=== PATIENT | female | born 1965 | race Caucasian/White ===

== ENCOUNTER 2020-07-08 15:01 | Emergency (ER) | payer MEDICAID, SELFPAY ==
[2020-07-08 16:28] VITALS: BP 136/83; PULSE 80; RESP 20; TEMP 36.4; O2SAT 96; BMI 30.2
[2020-07-08 19:40] VITALS: BP 164/90; PULSE 64; RESP 18; TEMP 36.7; O2SAT 99
--- NOTE | 2020-07-08 19:53 | ECG_ITS ---
Test Reason : CHEST PAIN Blood Pressure : / mmHG Vent. Rate : 065 BPM Atrial Rate : 065 BPM P-R Int : 194 ms QRS Dur : 088 ms QT Int : 378 ms P-R-T Axes : 040 -16 033 degrees QTc Int : 393 ms Normal sinus rhythm Septal infarct (cited on or before 26-AUG-2005) Abnormal ECG When compared with ECG of 31-MAY-2019 21:56, Premature ventricular complexes are no longer Present Questionable change in initial forces of Anterior leads Heart rate has decreased Referred By: Don Quiñones Electronically Signed By:NELL JOYCE MD
--- NOTE | 2020-07-08 19:54 | ED.ABDPAIN ---
HPI - Abdominal Pain General Chief Complaint: Abdominal Pain Stated Complaint: abdominal pain Time Seen by Provider: 07/08/20 19:36 Source: patient Mode of arrival: ambulatory Limitations: no limitations History of Present Illness HPI narrative: patient with no significant abdominal complaints in the past today she had few loose bowels and noticed left upper abdominal pain and then check her heart rate was 130 MD elicited complaint: abdominal pain Pertinent past history: none Onset (ago): day(s) (1) Pain Consistency: intermittent Location: LUQ Severity: mild Quality: cramping Radiation: LUQ Migration to: no migration Exacerbating factors: nothing Relieving factors: nothing Related Data Home Medications Medication Instructions Recorded Confirmed losartan 07/08/20 Allergies Allergy/AdvReac Type Severity Reaction Status Date / Time amoxicillin [AMOXICILLIN] Allergy Unknown HIVES Unverified 05/19/20 17:20 clarithromycin Allergy Unknown rash Verified 06/02/19 00:00 clindamycin [CLINDAMYCIN] Allergy Unknown RASH Unverified 05/19/20 17:20 metronidazole [From FLAGYL] Allergy Unknown RASH Unverified 05/19/20 17:20 Review of Systems Review of Systems REVIEW OF SYSTEMS: Pertinent positives and negatives are stated above in the history. GEN: no fevers, chills, fatigue HEENT: no nasal congestion, sore throat, ear pain NEURO: no headache, dizziness, focal weakness PULM: no cough, shortness of breath CV: no chest pain, palpitations, LE edema ABD: no, nausea, vomiting, no melena : no dysuria, urgency, frequency SKIN: no rash ROS otherwise negative x 10 Physical Exam Vital Signs: Vital Signs: Last Vital Signs Temp 98.1 F 07/08/20 20:06 Pulse 64 07/08/20 20:06 Resp 18 07/08/20 20:06 BP 127/76 07/08/20 20:06 Pulse Ox 99 07/08/20 20:06 Body Mass Index 30.2 Appearance: Alert. Oriented X3. No acute distress. Eyes: Pupils equal, round and reactive to light. ENT: Pharynx normal. Neck: Normal inspection. Neck supple. CVS: Normal heart rate and rhythm. Pulses normal. Respiratory: No respiratory distress. Breath sounds normal. Abdomen: Soft and nontender. no mass palpable no hernia no guarding Skin: Skin warm and dry. Normal skin color. Normal skin turgor. Extremities: No lower extremity edema. Good range of movement Neuro: Oriented X 3. No motor deficit. No sensory deficit. MDM - Abdominal Pain MDM Narrative Medical decision making narrative: patient with nonspecific abdominal pain with diarrhea at this time no abdominal tenderness noticed patient is feeling much better now likely from, diarrhea patient had colicky pain. Patient also said heart rate of 130 at this time patient has sinus rhythm will do the EKG ECG Data Attestation: I personally reviewed and interpreted this ECG as follows: Interpretation: normal sinus rhythm heart rate 65 normal intervals no acute ST T wave changes normal axis Discharge Plan Discharge Prescriptions: No Action losartan RF: 0 PMFSH Past Medical History Medical History Chronic renal failure Hypertension Hypoglycemia Social History Social History Advance Directives: No Advance Directives Information Provided: No
[2020-07-08 20:06] VITALS: BP 127/76; PULSE 64; RESP 18; TEMP 36.7; O2SAT 99
--- NOTE | 2020-07-08 20:21 | PC.NURSE ---
per dr cowan plan for ekg and d/c if normal. at this time ekg obtained, vitals wnl, pt denies any pain. plan to d.c home. ekg nsr.
== END 2020-07-08 20:40 | disposition home or self-care (01) ==
PROVIDERS: Emergency Provider Internal Medicine; PCP Physician Assistant
DX: R10.12 Left upper quadrant pain (principal); Z79.899 Other long term (current) drug therapy
CPT/HCPCS: 93005; 99283; 99284

== ENCOUNTER 2020-07-11 17:22 | Outpatient (REF) | payer MEDICAID, SELFPAY ==
[2020-07-11 17:53] LABS: MANUAL DIFF FLAG NO
[2020-07-11 17:58] LABS: Glucose Urine UA NEG (NEG); Leukocyte Esterase Urine NEG (NEG); Nitrite Urine NEG (NEG); PH 7.5 (5.0-8.0); Urine Blood NEG (NEG); Urine Ketones NEG (NEG); Urine Protein TRACE MG/DL (NEG-TRACE)
[2020-07-11 18:10] LABS: Basophils Absolute Auto 0.1 X10*3/uL (0.0-0.2); Basophils Percent Auto 0.8 % (0-2); Eosinophils Absolute Auto 0.2 X10*3/uL (0.0-0.4); Eosinophils Percent Auto 1.7 % (0-4); Hematocrit 40.4 % (37-47); Hemoglobin 13.8 g/dl (12.0-16.0); Imm Gran Abs Auto 0.02 X10*3/uL (0.00-0.03); Imm Gran Pct Auto 0.2 % (0.0-0.4); Lymphocytes Absolute Auto 1.2 X10*3/uL (1.2-4.9); Lymphocytes Percent Auto 13.7 % (20-40); Mean Corpuscular HGB Conc 34.2 g/dl (31.0-35.0); Mean Corpuscular Hemoglobin 32.2 pg (27.0-33.0); Mean Corpuscular Volume 94.2 fL (80-98); Mean Platelet Volume 10.3 fL (9.4-12.3); Monocytes Absolute Auto 0.5 X10*3/uL (0.1-1.2); Monocytes Percent Auto 5.5 % (2-11); Neutrophils Absolute Auto 6.7 X10*3/uL (2.0-8.3); Neutrophils Percent Auto 78.1 % (45-73); Platelet Count 276 X10*3/uL (160-400); Red Blood Count 4.29 X10*6/uL (4.20-5.50); Red Cell Distribution Width 12.1 % (11.0-16.0); White Blood Count 8.6 X10*3/uL (4.8-10.8)
[2020-07-11 18:11] LABS: Appearance Urine CLEAR; Color Urine YELLOW
[2020-07-11 18:18] LABS: Anion Gap 12 (12-20); Blood Urea Nitrogen 12 mg/dL (9-16); Calcium 9.4 mg/dL (8.4-10.2); Carbon Dioxide 28 mmol/L (22-29); Chloride 102 mmol/L (96-108); Creatinine Urine 77.23 mg/dL; Estimated Glomerular Filt Rate > 60; Microalbum/Creatinine Ratio Ur 284.8 ug/mg cr; Phosphorus 3.2 mg/dL (2.7-4.5); Potassium 4.9 mmol/l (3.3-5.1); Sodium 137 mmol/L (135-145)
[2020-07-11 18:35] LABS: RBC Urine 0 /HPF (0); Squamous Epithelial Cell Urine 3+ /LPF; WBC Urine 0 /HPF (0-4)
[2020-07-11 18:39] LABS: Vitamin D 25-OH Total 22.1 ng/mL (>30)
[2020-07-11 19:08] LABS: Renal w Reflex Lab Use Only Order verified
[2020-07-13 13:06] LABS: Calcium (PTHI) 9.6 mg/dL (8.6-10.4); PTHI 56 pg/mL (14-64)
== END 2020-07-11 17:23 | disposition home or self-care (01) ==
LOC: HO.LAB 17:22
PROVIDERS: Visit Provider Internal Medicine Nephrology
DX: N02.8 Recurrent and persistent hematuria with other morphologic changes (principal); R80.9 Proteinuria, unspecified
CPT/HCPCS: 36415; 80051; 81001; 82043; 82306; 82310; 82565; 83970; 84100; 84520; 85025

== ENCOUNTER 2020-08-23 16:10 | Outpatient (REF) | payer MEDICAID, SELFPAY | END 2020-08-23 16:11 | disposition home or self-care (01) | LOC: HO.LAB 16:10 | PROVIDERS: Visit Provider Internal Medicine | DX: Z20.828 Contact with and (suspected) exposure to other viral communicable diseases (principal) | CPT/HCPCS: C9803; U0003 ==

== ENCOUNTER 2020-09-28 14:30 | Emergency (ER) | payer MEDICAID, SELFPAY ==
--- NOTE | 2020-09-28 14:55 | ED_ITS ---
HPI - General Adult General Chief complaint: Weakness Stated complaint: HIGH BP Time Seen by Provider: 09/28/20 14:55 Source: patient Mode of arrival: ambulatory Limitations: no limitations History of Present Illness HPI narrative: Patient has noticed that her pressure is high feels weak and fatigued. Patient has been on losartan for a few years, pressure has been running high for a few days. Patient had a COVID test that is negative. Patient feels a little more swollen Onset (ago): day(s) Severity: mild Related Data Home Medications Medication Instructions Recorded Confirmed losartan 07/08/20 Allergies Allergy/AdvReac Type Severity Reaction Status Date / Time amoxicillin [AMOXICILLIN] Allergy Unknown HIVES Verified 09/28/20 15:16 clarithromycin Allergy Unknown rash Verified 06/02/19 00:00 clindamycin [CLINDAMYCIN] Allergy Unknown RASH Verified 09/28/20 15:16 metronidazole [From FLAGYL] Allergy Unknown RASH Verified 09/28/20 15:17 Review of Systems Constitutional: Constitutional: Reports no additional constitutional c omplaints Eyes: Eyes: Reports no additional eye complaints ENT: Denies dizziness Cardiovascular: Cardiovascular: Reports no additional cardiovascular complaints Respiratory: Respiratory: Reports as per HPI Gastrointestinal: Gastrointestinal: Reports no additional gastrointestinal complaints Genitourinary: Genitourinary: Reports no additional female genitourinary complaints Musculoskeletal: Musculoskeletal: Reports no additional musculoskeletal complaints Integumentary/Breasts: Skin/Breast: Denies rash Neurologic: Reports system reviewed and no additional complaints, except as documented, Denies dizziness and Denies Sensory deficit (Neuro) Psychiatric: Psychiatric: Denies anxiety [facility] Past Medical History Medical History Chronic renal failure Hypertension Hypoglycemia Social History Social History Advance Directives: No Advance Directives Information Provided: Yes Physical Exam Vital Signs: Vital Signs: Last Vital Signs Temp 98.6 F 09/28/20 15:01 Pulse 111 H 09/28/20 15:01 Resp 18 09/28/20 15:01 BP 179/85 H 09/28/20 15:01 Pulse Ox 100 09/28/20 15:01 Body Mass Index 30.1 Const: Other: Patient appearing stressed and anxious General: healthy appearing Nutritional Appearance: average body habitus Orientation/consciousness: oriented to person and patient oriented x3 Limitations: no limitations HENMT: Head: Yes normal to inspection Ears: external ears normal General nose exam: Normal external nose present Mouth: Normal oral and palatal mucosa present and oropharynx normal Throat: Yes posterior oropharynx normal Eyes: General: appearance normal, both eyes and all related structures Neck: Other: supple Neck: Yes normal visual inspection Chest: Chest palpation & inspection: normal inspection of the chest Resp: Auscultation: clear to auscultation bilaterally Cardio: Jugular venous distension: no JVD Rate: regular rate Rhythm: regular rhythm Heart sounds: S1 normal heart sound present and S2 normal heart sound present GI: Inspection: Yes normal to inspection Palpation (GI): Soft to palpation, nontender and No hepatosplenomegaly present Auscultation: normal bowel sounds : General: Yes no CVA tenderness Back/Spine/Pelvis: Back: no CVA tenderness Skin: General skin exam: no rashes or lesions noted Neuro: General: oriented to person and patient oriented x3 Cranial nerves: Yes CN's II-XII intact bilaterally Motor exam (neuro): 5/5 motor strength pre sent throughout Sensory Exam: No Sensory deficit (Neuro) Extrem: General: Yes normal to inspection Psych: Appearance: grossly normal Course Course Course Narrative: no evidence of CAD or CHF, renal function stable Medical Decision Making MDM Narrative Medical decision making narrative: considered HTN urgency, CHF, CAD, renal failure. Patient with essential HTN will dc home Lab Data Result diagrams: 09/28/20 15:26 09/28/20 15:26 Labs: Lab Results 09/28/20 09/28/20 09/28/20 Range/Units 15:26 15:26 15:26 WBC 9.9 (4.8-10.8) X10*3/uL RBC 4.31 (4.20-5.50) X10*6/uL Hgb 13.7 (12.0-16.0) g/dl Hct 40.1 (37-47) % MCV 93.0 (80-98) fL MCH 31.8 (27.0-33.0) pg MCHC 34.2 (31.0-35.0) g/dl RDW 12.0 (11.0-16.0) % Plt Count 251 (160-400) X10*3/uL MPV 9.7 (9.4-12.3) fL Immature Gran % (Auto) 0.3 (0.0-0.4) % Neut % (Auto) 78.5 H (45-73) % Lymph % (Auto) 13.6 L (20-40) % [place] % (Auto) 5.7 (2-11) % Eos % (Auto) 1.2 (0-4) % Baso % (Auto) 0.7 (0-2) % Lymph # (Auto) 1.4 (1.2-4.9) X10*3/uL [place] # (Auto) 0.6 (0.1-1.2) X10*3/uL Eos # (Auto) 0.1 (0.0-0.4) X10*3/uL Baso # (Auto) 0.1 (0.0-0.2) X10*3/uL Abs Immat Gran (auto) 0.03 (0.00-0.03) X10*3/uL Absolute Neuts (auto) 7.8 (2.0-8.3) X10*3/uL Absolute Nucleated RBC 0.000 (0.0-0.012) X10*3/uL Nucleated RBC % (auto) 0.0 (0.0-0.2) /100WBC Sodium 136 (135-145) mmol/L Potassium 3.8 D (3.3-5.1) mmol/l Chloride 103 (96-108) mmol/L Carbon Dioxide 24 (22-29) mmol/L Anion Gap 13 (12-20) BUN 12 (9-16) mg/dL Creatinine 0.74 (0.5-1.4) mg/dL Estim Creat Clear Calc 84.4 Estimated GFR > 60 Random Glucose 94 (60-115) mg/dL Calcium 8.7 D (8.4-10.2) mg/dL Troponin I High Sens (<3.5-17.0) ng/L B-Natriuretic Peptide < 10 (<100) pg/mL 09/28/20 Range/Units 15:26 WBC (4.8-10.8) X10*3/uL RBC (4.20-5.50) X10*6/uL Hgb (12.0-16.0) g/dl Hct (37-47) % MCV (80-98) fL MCH (27.0-33.0) pg MCHC (31.0-35.0) g/dl RDW (11.0-16.0) % Plt Count (160-400) X10*3/uL MPV (9.4-12.3) fL Immature Gran % (Auto) (0.0-0.4) % Neut % (Auto) (45-73) % Lymph % (Auto) (20-40) % [place] % (Auto) (2-11) % Eos % (Auto) (0-4) % Baso % (Auto) (0-2) % Lymph # (Auto) (1.2-4.9) X10*3/uL [place] # (Auto) (0.1-1.2) X10*3/uL Eos # (Auto) (0.0-0.4) X10*3/uL Baso # (Auto) (0.0-0.2) X10*3/uL Abs Immat Gran (auto) (0.00-0.03) X10*3/uL Absolute Neuts (auto) (2.0-8.3) X10*3/uL Absolute Nucleated RBC (0.0-0.012) X10*3/uL Nucleated RBC % (auto) (0.0-0.2) /100WBC Sodium (135-145) mmol/L Potassium (3.3-5.1) mmol/l Chloride (96-108) mmol/L Carbon Dioxide (22-29) mmol/L Anion Gap (12-20) BUN (9-16) mg/dL Creatinine (0.5-1.4) mg/dL Estim Creat Clear Calc Estimated GFR Random Glucose (60-115) mg/dL Calcium (8.4-10.2) mg/dL Troponin I High Sens < 3.5 (<3.5-17.0) ng/L B-Natriuretic Peptide (<100) pg/mL Imaging Data Chest x-ray: Radiologist's impression: no chf ECG Data Attestation: I personally reviewed and interpreted this ECG as follows: Interpretation: normal sinus rhythm rate 75, old septal qs, no acute changes Discharge Plan Discharge Clinical Impression: Essential hypertension Patient Disposition: Home, Self-Care Instructions: Chronic Hypertension (ED) Additional Instructions: may take losartan 25mg twice a day Prescriptions: No Action losartan RF: 0 Referrals: Ag Angel MD [Primary Care Provider] - 2 days
[2020-09-28 15:01] VITALS: BP 179/85; PULSE 111; RESP 18; TEMP 37; O2SAT 100; BMI 30.1
--- NOTE | 2020-09-28 15:01 | ECG_ITS ---
Test Reason : GENERAL MEDICAL Blood Pressure : / mmHG Vent. Rate : 075 BPM Atrial Rate : 075 BPM P-R Int : 190 ms QRS Dur : 080 ms QT Int : 370 ms P-R-T Axes : 063 -16 036 degrees QTc Int : 413 ms Normal sinus rhythm with sinus arrhythmia Septal infarct (cited on or before 26-AUG-2005) Abnormal ECG When compared with ECG of 08-JUL-2020 20:16, No significant change was found Referred By: Channing Sparks Electronically Signed By:John Garcia
--- NOTE | 2020-09-28 15:02 | XR_ITS ---
EXAMINATION: XR CHEST CLINICAL INFORMATION: Shortness of breath COMPARISON: Chest radiographs 02/21/2020, 04/14/2019 TECHNIQUE: Portable upright AP view of the chest was obtained. FINDINGS: The lungs are clear. There is no airspace consolidation or groundglass opacity. The costophrenic sulci are well-defined. Heart is normal. The hilar and mediastinal contours and bony structures are unremarkable. XR/XR chest 1V IMPRESSION: Unremarkable examination.
--- NOTE | 2020-09-28 15:29 | PC.NURSE ---
SEEN BY DR RICARDO. BP NORMAL AFTER TRIAGE - HTN MED HELP. LABS DRAWN.
[2020-09-28 15:31] LABS: MANUAL DIFF FLAG NO
[2020-09-28 15:34] LABS: Basophils Absolute Auto 0.1 X10*3/uL (0.0-0.2); Basophils Percent Auto 0.7 % (0-2); Eosinophils Absolute Auto 0.1 X10*3/uL (0.0-0.4); Eosinophils Percent Auto 1.2 % (0-4); Hematocrit 40.1 % (37-47); Hemoglobin 13.7 g/dl (12.0-16.0); Imm Gran Abs Auto 0.03 X10*3/uL (0.00-0.03); Imm Gran Pct Auto 0.3 % (0.0-0.4); Lymphocytes Absolute Auto 1.4 X10*3/uL (1.2-4.9); Lymphocytes Percent Auto 13.6 % (20-40); Mean Corpuscular HGB Conc 34.2 g/dl (31.0-35.0); Mean Corpuscular Hemoglobin 31.8 pg (27.0-33.0); Mean Platelet Volume 9.7 fL (9.4-12.3); Monocytes Absolute Auto 0.6 X10*3/uL (0.1-1.2); Monocytes Percent Auto 5.7 % (2-11); Neutrophils Absolute Auto 7.8 X10*3/uL (2.0-8.3); Neutrophils Percent Auto 78.5 % (45-73); Platelet Count 251 X10*3/uL (160-400); Red Blood Count 4.31 X10*6/uL (4.20-5.50); White Blood Count 9.9 X10*3/uL (4.8-10.8)
[2020-09-28 16:03] LABS: Anion Gap 13 (12-20); Blood Urea Nitrogen 12 mg/dL (9-16); Calcium 8.7 mg/dL (8.4-10.2); Carbon Dioxide 24 mmol/L (22-29); Creatinine Clr Calc Pharmacy 84.4; Estimated Glomerular Filt Rate > 60; Glucose Random 94 mg/dL (60-115); Potassium 3.8 mmol/l (3.3-5.1)
[2020-09-28 16:06] LABS: Chloride 103 mmol/L (96-108); Sodium 136 mmol/L (135-145)
[2020-09-28 16:11] LABS: B Type Natriuretic Peptide < 10 pg/mL (<100); Troponin-I High Sensitivity < 3.5 ng/L (<3.5-17.0)
[2020-09-28 16:38] VITALS: BP 127/73; PULSE 70
--- NOTE | 2020-09-28 16:46 | PC.NURSE ---
AFTER EVAL OF RESULTS, CLEARED FOR ED BY PROVIDER.
== END 2020-09-28 16:48 | disposition home or self-care (01) ==
PROVIDERS: Emergency Provider Emergency Medicine; PCP Family Medicine
DX: I10 Essential (primary) hypertension (principal); R53.1 Weakness; Z79.899 Other long term (current) drug therapy
CPT/HCPCS: 36415; 71045; 80048; 83880; 84484; 85025; 93005; 99283

== ENCOUNTER 2020-10-21 16:24 | Outpatient (REF) | payer MEDICAID, SELFPAY ==
[2020-10-21 17:39] LABS: Glucose Urine UA NEG (NEG); Leukocyte Esterase Urine NEG (NEG); Nitrite Urine NEG (NEG); Urine Blood TRACE (NEG); Urine Ketones NEG (NEG); Urine Protein NEG (NEG-TRACE)
[2020-10-21 17:40] LABS: Appearance Urine CLEAR; Color Urine YELLOW
[2020-10-21 17:47] LABS: Albumin Level 4.4 g/dL (3.5-5.0); Anion Gap 12 (12-20); Blood Urea Nitrogen 17 mg/dL (9-16); Calcium 9.1 mg/dL (8.4-10.2); Carbon Dioxide 24 mmol/L (22-29); Chloride 106 mmol/L (96-108); Estimated Glomerular Filt Rate > 60; Magnesium 2.3 mg/dL (1.6-2.6); Phosphorus 3.7 mg/dL (2.7-4.5); Potassium 4.3 mmol/L (3.3-5.1); Sodium 138 mmol/L (135-145)
[2020-10-21 17:52] LABS: Creatinine Urine 47.82 mg/dL; Protein/Creatinine Ratio, Ur 0.27 (<0.2); Total Protein Urine Random 13 mg/dL (<12)
[2020-10-21 18:03] LABS: Bacteria Urine 1+ /LPF; RBC Urine 0-2 /HPF (0); Squamous Epithelial Cell Urine 1+ /LPF; WBC Urine 0 /HPF (0-4)
[2020-10-21 18:57] LABS: Renal w Reflex Lab Use Only Order verified
== END 2020-10-21 16:25 | disposition home or self-care (01) ==
LOC: HO.LAB 16:24
PROVIDERS: PCP Family Medicine; Visit Provider Internal Medicine Nephrology
DX: N02.8 Recurrent and persistent hematuria with other morphologic changes (principal); R80.9 Proteinuria, unspecified; I10 Essential (primary) hypertension
CPT/HCPCS: 36415; 80051; 81001; 82040; 82043; 82310; 82565; 83735; 84100; 84156; 84520

== ENCOUNTER → 2020-11-15 13:24 | Outpatient (BNVA) | payer MEDICAID, SELFPAY | PROVIDERS: PCP Family Medicine; Visit Provider Nurse Practitioner Family | DX: R06.02 Shortness of breath (principal); I10 Essential (primary) hypertension; E66.9 Obesity, unspecified; Z68.30 Body mass index [BMI] 30.0-30.9, adult; Z79.899 Other long term (current) drug therapy; Z71.3 Dietary counseling and surveillance | CPT/HCPCS: 93005; 99212 ==

== ENCOUNTER → 2020-11-24 13:59 | Outpatient (BNVA) | payer MEDICAID, SELFPAY | PROVIDERS: PCP Family Medicine; Visit Provider Internal Medicine | DX: I10 Essential (primary) hypertension (principal) | CPT/HCPCS: 99212 ==

== ENCOUNTER → 2020-12-01 10:19 | Outpatient (REF) | payer MEDICAID, SELFPAY ==
--- NOTE | 2020-12-01 10:23 | CA_ITS ---
Transthoracic Echocardiogram Patient (Last, First, Middle): Belgica Rosario E Gender: Female Date of : 1965 Age: 55 Procedure Date: 12/01/2020 Procedure Type: Transthoracic Echocardiogram Location: OP Height: 160.02 cm Weight: 76.2 kg BSA: 1.80 m2 Heart Rate: bpm BP: 130 / 60 mmHg Ship Erector: EUFEMIA Referring MD: Gela Benton [employer] Intern: Oswadl Espino MD Symptoms: R06.02 - Shortness of breath Study Quality: Fair ECG Rhythm: Sinus Conclusions: - Normal study Findings Left Ventricle Normal left ventricular size, thickness, and systolic function. The visually estimated ejection fraction is between 60-65%. Diastolic function is normal for age. Right Ventricle Normal right ventricular cavity size and systolic function. Atria Both atria are normal in size. There is no evidence of interatrial shunt. Aortic Valve The aortic valve structure and function is likely normal. There is no aortic valve stenosis. There is no aortic valve regurgitation. Mitral Valve Normal mitral valve structure and function. There is trace mitral valve regurgitation. There is no mitral valve stenosis. Pulmonic Valve The pulmonic valve is likely normal. Tricuspid Valve Likely normal tricuspid valve structure and function. Tricuspid regurgitation envelope is inadequate for calculation of right ventricular systolic pressure. Great Vessels All visible segments of the aorta are normal in size. The pulmonary artery was not well visualized. Venous The inferior vena cava is normal in size and collapses greater than 50% with inspiration. Pericardium/Pleural There is no evidence of pericardial effusion. Prior Study Comparison No significant change compared to prior study dated: 01/02/2019. Measurements 2D Linear Measurements IVSd: 0.87 0.6-0.9/0.6-1.0 cm LVIDd: 4.35 3.9-5.3/4.2-5.9 cm LVIDd Index: 2.42 2.4-3.2/2.2-3.1 cm/m2 LVIDs: 2.96 2.0-3.6 cm LVPWd: 0.85 0.7-1.1 cm Ao Root: 2.30 2.1-3.5 cm LA Diam: 3.00 2.7-3.8/3.0-4.0 cm LAIDs Index: 1.67 1.5-2.3 cm/m2 LV Mass: 147.10 67-162/88-224 g LV Mass Index: 81.72 43-95/49-115 g/m2 LVOT Diam: 2.00 3.0+(-)1.3 cm 2D Systolic Function EF 4C: 66.10 >55% EF 2C: 61.60 >55% EF BiP: 64.40 >55% Mitral Valve MV Pk E: 0.89 MV PK A: 0.61 MV Decel Time: 277.00 E/A: 1.50 E'Lateral: 13.30 E'Medial: 11.30 E/E' Med: 7.90 E/E' Lat: 6.70 PHT: 81.00 MVA PHT: 2.72 Decel Pope: 3.23 Aortic Valve AoV Pk Rosalio: 1.51 AoV Pk Grad: 9.00 LVOT LVOT Pk Rosalio: 0.91 LVOT Mn Rosalio: 0.69 LVOT VTI: 0.19 LVOT Pk Grad: 3.00 LVOT Mn Grad: 2.00 LVOT Diam: 2.00 LVOT Area: 3.14 Diastolic Function MV Pk E: 0.89 MV Pk A: 0.61 E/A: 1.50 E'Medial: 11.30 E/E' Med: 7.90 E' Laterial: 13.30 E/E' Lat: 6.70 Tricuspid Valve RA Press: 3.00 Great Vessels Aorta Ao Root-2D: 2.30 2.0-3.7 cm Ao Asc: 2.90 2.1-3.4 cm Ao Arch: 2.80 Pulmonary Valve PV Pk Rosalio: 1.02 Peak PV Grad: 4.00 Updated in Other Vendor System with Status of Final Oswald Espino MD electronically signed on 12/01/2020 2:23:17 PM with status of Final
[2020-12-01 12:40] LABS: Anion Gap 12 (12-20); Blood Urea Nitrogen 13 mg/dL (9-16); Calcium 9.2 mg/dL (8.4-10.2); Carbon Dioxide 30 mmol/L (22-29); Chloride 102 mmol/L (96-108); Estimated Glomerular Filt Rate > 60; Potassium 4.1 mmol/L (3.3-5.1); Sodium 140 mmol/L (135-145); Uric Acid 6.5 mg/dL (2.4-5.7)
== END ==
LOC: HO.CARD 10:19
PROVIDERS: Absent Provider Internal Medicine Nephrology; PCP Family Medicine; Visit Provider Nurse Practitioner Family
DX: E66.9 Obesity, unspecified (principal); R06.02 Shortness of breath; N02.8 Recurrent and persistent hematuria with other morphologic changes; I10 Essential (primary) hypertension; R80.1 Persistent proteinuria, unspecified
CPT/HCPCS: 36415; 80051; 82310; 82565; 84520; 84550; 93306

== ENCOUNTER → 2020-12-29 11:04 | Outpatient (BNVA) | payer MEDICAID, SELFPAY | PROVIDERS: PCP Family Medicine; Visit Provider Nurse Practitioner Family ==

== ENCOUNTER 2020-12-30 13:22 | Outpatient (REF) | payer MEDICAID, SELFPAY ==
[2020-12-30 14:25] LABS: Glucose Urine UA NEG (NEG); Leukocyte Esterase Urine NEG (NEG); Nitrite Urine NEG (NEG); PH 6.5 (5.0-8.0); Specific Gravity - Urine <= 1.005 (1.005-1.025); Urine Blood NEG (NEG); Urine Ketones NEG (NEG); Urine Protein NEG (NEG-TRACE)
[2020-12-30 14:28] LABS: Appearance Urine CLEAR; Color Urine STRAW
[2020-12-30 14:39] LABS: RBC Urine 0 /HPF (0); WBC Urine 0 /HPF (0-4)
[2020-12-30 14:44] LABS: Albumin Level 4.9 g/dL (3.5-5.0); Anion Gap 14 (12-20); Blood Urea Nitrogen 12 mg/dL (9-16); Carbon Dioxide 29 mmol/L (22-29); Chloride 101 mmol/L (96-108); Estimated Glomerular Filt Rate > 60; Sodium 140 mmol/L (135-145); Uric Acid 5.9 mg/dL (2.4-5.7)
[2020-12-30 14:49] LABS: Creatinine Urine 18.46 mg/dL; Total Protein Urine Random < 7 mg/dL (<12)
== END 2020-12-30 13:23 | disposition home or self-care (01) ==
LOC: HO.LAB 13:22
PROVIDERS: PCP Family Medicine; Visit Provider Internal Medicine Nephrology
DX: R80.1 Persistent proteinuria, unspecified (principal); N03.3 Chronic nephritic syndrome with diffuse mesangial proliferative glomerulonephritis; N02.8 Recurrent and persistent hematuria with other morphologic changes; I10 Essential (primary) hypertension
CPT/HCPCS: 36415; 80051; 81001; 82040; 82310; 82565; 84156; 84520; 84550

== ENCOUNTER 2021-01-05 08:22 | Outpatient (REF) | payer MEDICAID, SELFPAY ==
--- NOTE | ~2021-01-05 | CT_ITS ---
EXAMINATION: CT ABDOMEN AND PELVIS WITH CONTRAST CLINICAL INFORMATION: Right-sided abdominal pain COMPARISON: Previous CT scans of the abdomen and pelvis most recent May 2019 TECHNIQUE: Multidetector volumetric images were obtained from the superior aspect of the liver through the pubic symphysis following administration 85 mL of Omnipaque 350 intravenous contrast. Sagittal and coronal reformatted images were obtained on the technologist's workstation. Oral contrast: Yes This CT examination was performed using dose optimization techniques as appropriate, variously including the following: *Automated exposure control *Adjustment of mA and/or kV according to patient size (this includes techniques or standardized protocols for targeted exams where dose is matched to indication/reason for exam; i.e. extremities or head) *Use of iterative reconstruction technique DLP: 400 mGy-cm FINDINGS: LUNG BASES: The visualized lung bases are unremarkable. LIVER, GALLBLADDER, AND BILIARY TREE: The liver is normal in size, shape, and attenuation. No focal hepatic lesion or biliary ductal dilatation is present. The gallbladder is unremarkable with no evidence of radiopaque gallstones, gallbladder wall thickening, or obvious pericholecystic inflammatory changes. PANCREAS: Unremarkable. SPLEEN: Unremarkable. ADRENAL GLANDS: There is a small 7 mm low-attenuation lesion in the left adrenal gland axial image 17 series 3. Hounsfield units following contrast measure 46 which is indeterminate. This does not appear appreciably changed from most recent exam May 2019. The right adrenal gland is normal. KIDNEYS AND URETERS: The kidneys are normal in size, shape, and attenuation. No hydronephrosis, hydroureter, or calculi seen. No perinephric stranding. BLADDER: Not well distended. GASTROINTESTINAL TRACT: There is diverticulosis of the colon. No evidence of diverticulitis is seen. The small and large bowel are otherwise unremarkable. The appendix is unremarkable. ABDOMINAL WALL: No significant hernia is appreciated. LYMPH NODES: Normal. VASCULAR: Unremarkable. PELVIC VISCERA: Unremarkable. OSSEOUS STRUCTURES: Unremarkable. CT/CT abdomen pelvis w con IMPRESSION: Diverticulosis of the colon. No evidence of diverticulitis. Stable 7 mm low-attenuation left adrenal nodule from May 2019 exam.
[2021-01-05] MEDS: iohexoL 350 MG/ML 100 ML INFUS..BTL IV (11:54)
== END 2021-01-05 08:23 | disposition home or self-care (01) ==
LOC: HO.CT 08:22
PROVIDERS: Visit Provider Internal Medicine Gastroenterology
DX: R10.9 Unspecified abdominal pain (principal)
CPT/HCPCS: 74177; Q9967

== ENCOUNTER → 2021-01-17 14:51 | Outpatient (BNVA) | payer MEDICAID, SELFPAY | PROVIDERS: PCP Family Medicine; Visit Provider Internal Medicine ==

== ENCOUNTER → 2021-03-02 15:16 | Outpatient (BNVA) | payer MEDICAID, SELFPAY | PROVIDERS: PCP Family Medicine; Visit Provider Internal Medicine ==

== ENCOUNTER 2021-03-20 10:51 | Outpatient (REF) | payer MEDICAID, SELFPAY ==
--- NOTE | ~2021-03-20 | MM_ITS ---
EXAMINATION: MM DIAGNOSTIC DIGITAL BREAST TOMOSYNTHESIS, BILATERAL US DIAGNOSTIC ULTRASOUND BREAST, RIGHT CLINICAL INFORMATION: Outside MRI chest notes 0.8 cm oval enhancing nodule central lower right breast. Also due for yearly exam. Family history breast cancer, maternal aunt. The lifetime risk of breast cancer based on the Tyrer-Cuzick Model is 14%. COMPARISON: Mammography: 10/28/2019, 08/12/2017; outside MRI chest 03/01/2021 ([facility] TECHNIQUE: Digital breast tomosynthesis is performed in both the craniocaudal and mediolateral oblique views along with computer-aided detection (CAD). Synthesized 2D images are generated from the tomosynthesis. Ultrasound right breast is targeted to the lower quadrants. Grayscale imaging and color Doppler are performed without and with harmonics. FINDINGS: The breasts are heterogeneously dense, which may obscure small masses (ACR BI-RADS breast composition Category c). The parenchymal pattern is similar to prior studies. There is no developing density or interval mass or architectural abnormality. There are are some scattered punctate calcifications central outer breasts similar to prior exams. The bilateral axilla and skin contours are unremarkable. The right breast has stable oval smooth nodule mid to posterior 6:00 position measuring 0.9 x 0.7 cm. This is similar in size and shape to prior studies 2019 and 2016. This corresponds to the finding on outside chest MRI. Outside exam shows oval nodule in similar location, high signal on T2 and showing uniform enhancement following gadolinium. Suspect probable fibroadenoma. Lack of change since 2017 is consistent with a benign entity. There is no ultrasound correlate to the chronic smooth benign nodule lower right breast. There is no cystic or solid mass demonstrated by ultrasound in the targeted area. No focal duct ectasia. No abnormal color flow. Results are discussed with the patient at time of visit. The finding lower right breast corresponds to the lesion on outside chest MRI and is stable for over 3 years consistent with benign entity, likely fibroadenoma. MM/MM tomosynthesis diagnostic BI IMPRESSION: 1. No mammographic evidence of malignancy. 2. Small smooth oval nodule 6:00 right breast stable since 08/12/2017 consistent with benign nodule, likely fibroadenoma. This corresponds to the finding on outside MR chest 03/01/2021. ASSESSMENT: BI-RADS 2: Benign RECOMMENDATION: Routine annual mammography screening. This patient's information was entered into a reminder system with a target due date for their next mammogram.
== END 2021-03-20 10:52 | disposition home or self-care (01) ==
LOC: HO.MAMMO 10:51
PROVIDERS: Visit Provider Family Medicine
DX: N63.15 Unspecified lump in the right breast, overlapping quadrants (principal)
CPT/HCPCS: 76642; 77062; 77066

== ENCOUNTER 2021-09-27 09:13 | Outpatient (REF) | payer MEDICAID, SELFPAY ==
[2021-09-27 10:12] LABS: Anion Gap 11 (12-20); Blood Urea Nitrogen 17 mg/dL (9-16); Calcium 9.8 mg/dL (8.4-10.2); Carbon Dioxide 28 mmol/L (22-29); Chloride 105 mmol/L (96-108); Cholesterol 226 mg/dL; Estimated Glomerular Filt Rate > 60; Glucose Random 94 mg/dL (60-115); HDL Cholesterol 54 mg/dL; LDL Cholesterol Calculated 152 mg/dl; Sodium 140 mmol/L (135-145); Triglycerides 103 mg/dL
== END 2021-09-27 09:14 | disposition home or self-care (01) ==
LOC: HO.LAB 09:13
PROVIDERS: Absent Provider Family Medicine; PCP Family Medicine; Visit Provider Nurse Practitioner Family
DX: E66.9 Obesity, unspecified (principal); I10 Essential (primary) hypertension; R06.02 Shortness of breath
CPT/HCPCS: 36415; 80048; 80061

== ENCOUNTER 2021-11-15 13:27 | Outpatient (REF) | payer MEDICAID, SELFPAY ==
--- NOTE | ~2021-11-15 | MM_ITS ---
EXAMINATION: MM DIAGNOSTIC DIGITAL BREAST TOMOSYNTHESIS, LEFT US DIAGNOSTIC ULTRASOUND BREAST, LEFT CLINICAL INFORMATION: Recent palpable fullness noted by patient left axilla. The lifetime risk of breast cancer based on the Tyrer-Cuzick Model is 15%. COMPARISON: Mammography: 03/20/2021, 10/28/2019, 08/12/2017 TECHNIQUE: Digital breast tomosynthesis is performed in both the craniocaudal and mediolateral oblique views along with computer-aided detection (CAD). Synthesized 2D images are generated from the tomosynthesis. Additional exaggerated left CC view is provided. Ultrasound upper outer left breast and axillary is performed using grayscale imaging and color Doppler without and with harmonics. FINDINGS: The breasts are heterogeneously dense, which may obscure small masses (ACR BI-RADS breast composition Category c). Parenchymal pattern is similar to prior studies and there is no developing density or interval mass or architectural abnormality. There are some scattered calcifications again seen central upper breast. There is no skin thickening or coarsening of the Daniel's ligaments. The axilla is unremarkable. Ultrasound demonstrates no cystic or solid mass or architectural abnormality. No lymphadenopathy. There are scattered nodes present in the axilla are of normal size and with normal henrry architecture and cortical thickness. Results are discussed with the patient at time of visit. MM/MM tomosynthesis diagnostic LT IMPRESSION: No mammographic evidence of malignancy. Unremarkable left breast/axillary ultrasound. No lymphadenopathy. ASSESSMENT: BI-RADS 1: Negative RECOMMENDATION: 1. Patient should be managed based on the clinical impression. If clinically indicated, further evaluation may be considered with surgical consult. Decision to proceed with biopsy should be based on clinical grounds and degree of clinical concern. 2. Otherwise, routine annual screening mammography. This patient's information was entered into a reminder system with a target due date for their next mammogram.
== END 2021-11-15 13:28 | disposition home or self-care (01) ==
LOC: HO.MAMMO 13:27
PROVIDERS: PCP Family Medicine; Visit Provider Family Medicine
DX: R22.2 Localized swelling, mass and lump, trunk (principal)
CPT/HCPCS: 76642; 77061; 77065

== ENCOUNTER 2022-04-25 12:46 | Outpatient (REF) | payer MEDICAID, SELFPAY ==
[2022-04-25 14:07] LABS: Anion Gap 17 (12-20); Blood Urea Nitrogen 14 mg/dL (9-16); Calcium 9.7 mg/dL (8.4-10.2); Carbon Dioxide 28 mmol/L (22-29); Chloride 99 mmol/L (96-108); Estimated Glomerular Filt Rate > 60; Potassium 3.9 mmol/L (3.3-5.1); Sodium 140 mmol/L (135-145)
[2022-04-25 14:18] LABS: Uric Acid 6.7 mg/dL (2.4-5.7)
== END 2022-04-25 12:47 | disposition home or self-care (01) ==
LOC: HO.LAB 12:46
PROVIDERS: PCP Family Medicine; Visit Provider Internal Medicine Nephrology
DX: I10 Essential (primary) hypertension (principal)
CPT/HCPCS: 36415; 80051; 82310; 82565; 84520; 84550

== ENCOUNTER 2022-11-21 15:28 | Outpatient (REF) | payer MEDICAID, SELFPAY ==
[2022-11-21 17:47] LABS: Appearance Urine Clear; Color Urine Yellow; Glucose Urine UA Negative (Negative); Leukocyte Esterase Urine Negative (Negative); Nitrite Urine Negative (Negative); Specific Gravity - Urine 1.015 (1.005-1.025); UMIC TRIGGER UA YES; Urine Blood Negative (Negative); Urine Ketones Negative (Negative); Urine Protein 30 (1+) mg/dL (Neg-Trace)
[2022-11-21 17:52] LABS: Bacteria Urine None Seen (None Seen); Hyaline Casts Urine 0-2 /LPF (0-2); RBC Urine 0-2 /HPF (0-2); Squamous Epithelial Cell Urine 0-2 /HPF (0-2); WBC Urine 0-5 /HPF (0-5)
[2022-11-21 17:58] LABS: Anion Gap 16 (12-20); Blood Urea Nitrogen 14 mg/dL (9-16); Calcium 9.1 mg/dL (8.4-10.2); Carbon Dioxide 24 mmol/L (22-29); Chloride 104 mmol/L (96-108); Estimated Glomerular Filt Rate 53; Potassium 4.3 mmol/L (3.3-5.1); Sodium 140 mmol/L (135-145)
[2022-11-21 18:34] LABS: Protein/Creatinine Ratio, Ur 0.27 (<0.2); Total Protein Urine Random 21 mg/dL (<12)
== END 2022-11-21 15:29 | disposition home or self-care (01) ==
LOC: HO.LAB 15:28
PROVIDERS: PCP Family Medicine; Visit Provider Internal Medicine Nephrology
DX: N07 Hereditary nephropathy, not elsewhere classified (principal)
CPT/HCPCS: 36415; 80051; 81001; 82310; 82565; 84156; 84520

== ENCOUNTER 2022-11-27 15:07 | Emergency (ER) | payer MEDICAID, SELFPAY ==
--- NOTE | ~2022-11-27 | XR_ITS ---
EXAMINATION: XR CHEST CLINICAL INFORMATION: Generalized weakness COMPARISON: 09/28/2020 chest radiograph. . TECHNIQUE: 2 views of the chest were obtained. FINDINGS: No significant abnormality is noted involving the heart, lungs, mediastinum, bony thorax or soft tissues. XR/XR chest 2V IMPRESSION: No acute cardiopulmonary process.
[2022-11-27 15:27] VITALS: BP 114/72; PULSE 86; RESP 18; TEMP 36.9; O2SAT 98; BMI 31.8
--- NOTE | 2022-11-27 15:28 | ED_ITS ---
HPI - General Adult General Chief complaint: General Medical <SHAHLA Mcdonald - Last Filed: 11/27/22 15:32> Stated complaint: high blood pressure <SHAHLA Mcdonald - Last Filed: 11/27/22 15:32> Time Seen by Provider: 11/27/22 15:56 <SHAHLA Mcdonald - Last Filed: 11/27/22 15:32> Source: patient <SHAHLA Alvarez Last Filed: 11/27/22 17:58> Mode of arrival: ambulatory <SHAHLA Alvarez - Last Filed: 11/27/22 17:58> Limitations: no limitations <SHAHLA Alvarez Last Filed: 11/27/22 17:58> History of Present Illness HPI narrative: This is a 57-year-old female history of IgA nephropathy hypertension, obesity presenting to the emergency department for evaluation of high blood pressure at home, patient tells me she is worried because this morning when she checked her pressure when she woke up her blood pressure was systolic in the 150s diastolic 112. Patient tells me she does not know why she checked her blood pressure however she noted it was high and because of her nephropathy she wanted to come in and be evaluated. I asked patient if she had any new medication changes and she tells me yes, she tells me she takes losartan, hydroc hlorothiazide and amlodipine. She reports that recently they increased her dose from amlodipine 5-10 however she has not been taking it as a full dose of 10 she takes 5 in the morning 5 at night. Patient also tells me she recently stopped taking trazodone for insomnia and she is not sure if this is why she feels weird . She is unable to describe what weird means. Patient denies chest pain, shortness of breath, nausea, vomiting, abdominal pain, headache, vision changes, dizziness, weakness, fevers, chills. Patient is followed by Nephrology Dr. Castellano. 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 <SHAHLA Alvarez Last Filed: 11/27/22 17:58> Related Data Home medications: Home Medications Medication Instructions Recorded Confirmed hydrochlorothiazide 25 mg tablet 12.5 mg PO DAILY 11/24/20 01/17/21 losartan 25 mg tablet See Rx Instructions PO DAILY 11/24/20 01/17/21 escitalopram oxalate 5 mg tablet 5 mg PO DAILY 12/29/20 01/17/21 lorazepam 0.5 mg tablet (Ativan) 0.5 mg PO DAILY PRN 12/29/20 01/17/21 Previous Rx's Medication Instructions Recorded doxazosin 1 mg tablet (Cardura) 1 mg PO DAILY #90 tabs 02/09/21 <SHAHLA Mcdonald - Last Filed: 11/27/22 15:32> Allergies/adverse reactions: Allergies Allergy/AdvReac Type Severity Reaction Status Date / Time amoxicillin [AMOXICILLIN] Allergy Unknown HIVES Verified 01/17/21 14:55 clarithromycin Allergy Unknown rash Verified 01/17/21 14:55 clindamycin [CLINDAMYCIN] Allergy Unknown RASH Verified 01/17/21 14:55 metronidazole [From FLAGYL] Allergy Unknown RASH Verified 01/17/21 14:55 <SHAHLA Mcdonald - Last Filed: 11/27/22 15:32> Review of Systems Review of Systems: Constitutional : No Weight loss, No Fever, No Chills, No Fatigue, No Malaise ENT/Mouth : No sore throat, No Rhinorrhea Eyes: No Eye Pain, No Swelling, No Redness Cardiovascular : No Chest Pain, No SOB, No Dyspnea on Exertion, No Orthopnea, No Edema, No Palpitations Respiratory : No Cough, No Sputum, No Wheezing Gastrointestinal : No Nausea, No Vomiting, No Diarrhea, No Constipation, No abdominal Pain, No Hematochezia, No Melena Genitourinary : No Dysuria, No Urinary Frequency, No Hematuria, Musculoskeletal : No joint pain, No Myalgias, No Joint Swelling Skin : No Skin Lesions, No rash Neuro : No Weakness, No Numbness, No Dizziness, No Headache Psych : No Anxiety/Panic, No Depression All other systems reviewed and are negative <SHAHLA Alvarez Last Filed: 11/27/22 17:58> Yes all other systems are reviewed and are negative <SHAHLA Alvarez Last Filed: 11/27/22 17:58> [facility] Past Medical History Attestation statement: The following information was validated with the patient. <SHAHLA Alvarez - Last Filed: 11/27/22 17:58> Source: old records reviewed and nursing notes reviewed <SHAHLA Alvarez - Last Filed: 11/27/22 17:58> Medical History: Medical History Chronic renal failure Essential hypertension Hypertension Hypoglycemia <SHAHLA Mcdonald - Last Filed: 11/27/22 15:32> Surgical History: Surgical History No pertinent past surgical history <SHAHLA Mcdonald - Last Filed: 11/27/22 15:32> Family History Family History: Family History Mother HTN (hypertension) <SHAHLA Mcdonald - Last Filed: 11/27/22 15:32> Social History Social History: Social History Advance Directives: No Advance Directives Information Provided: No <SHAHLA Mcdonald - Last Filed: 11/27/22 15:32> Physical Exam ED Vital Signs: Vital Signs - 24 hr 11/27/22 15:27 Temperature 98.4 F Pulse Rate 86 Respiratory Rate 18 Blood Pressure 114/72 Pulse Oximetry 98 Oxygen Delivery Method Room Air BMI result Body Mass Index 31.8 <SHAHLA Mcdonald - Last Filed: 11/27/22 15:32> Vital Signs - 24 hr 11/27/22 15:27 Temperature 98.4 F Pulse Rate 86 Respiratory Rate 18 Blood Pressure 114/72 Pulse Oximetry 98 Oxygen Delivery Method Room Air BMI result Body Mass Index 31.8 Vital signs stable <SHAHLA Alvarez - Last Filed: 11/27/22 17:58> Appearance: Alert.? Oriented X3.? No acute distress.? Head: Normocephalic, atraumatic, no step-offs or deformities Eyes: Pupils equal, round and reactive to light.? CVS: Normal heart rate and rhythm.? Pulses normal.? Respiratory: No respiratory distress.? Breath sounds normal.? Abdomen: Soft and nontender.? Skin: Skin warm and dry.? Normal skin color.? Normal skin turgor.? Extremities: No lower extremity edema.? No calf ttp. 5/5 strength to bilateral upper and lower extremities Back: No midline tenderness, no C-spine tenderness, full range of motion, no CV A tenderness bilaterally Neuro: Oriented X 3.? No motor deficit.? No sensory deficit. CN 2-12 intact. Normal [id number], mypi-in-ddve steady tandem gait with normal coordination. NIH stroke scale 0 <SHAHLA Alvarez - Last Filed: 11/27/22 17:58> Course Course Course Narrative: RME- 15:30pm - 57yoF with a PMHx of IG nephropathy presenting to the ER with complaints of high blood pressure readings all day at 166/110. Reports she was feeling a l ittle bit off like weak it was weird per pt. Reports now she feels better. Patient has normal vital signs here in the triage room. Will obtain EKG, chest x-ray and basic labs patient to be sent back to the waiting room. <SHAHLA Mcdonald - Last Filed: 11/27/22 15:32> Reevaluation(s) Reevaluation #1: CBC with no acute findings. UA without infection however does appear to have protein in the urine, which has been present previously will have her follow up with Nephrology nothing to be done acutely about this... Coags unremarkable. X-ray with no acute pulmonary process. Pending serology, chemistry, troponin. <SHAHLA Alvarez - Last Filed: 11/27/22 17:58> Time: 17:13 <SHAHLA Alvarez - Last Filed: 11/27/22 17:58> Reevaluation #2: Troponin negative, EKG nonischemic. Patient negative for flu, COVID, RSV. Chemistry with no acute findings requiring intervention. Have her follow-up with Nephrology. Educated patient on diagnosis and treatment plan, answered all question, patient verbalizes understanding. At this time patient will be discharged home, advised to return with new or worsening symptoms. Educated on worrisome signs and symptoms and when to return. At this time I feel comfortabl e discharge home. <SHAHLA Alvarez - Last Filed: 11/27/22 17:58> Time: 17:58 <SHAHLA Alvarez - Last Filed: 11/27/22 17:58> Medical Decision Making Medical Decision Making [facility] Narrative: 1605 57-year-old female presents for evaluation of high blood pressures at home, asymptomatic, tells me she just wanted to be seen since she has a history of IgA nephropathy. Physical exam benign. NIH stroke scale 0. Patient's blood pressure likely elevated at home due to patient not taking her medications as prescribed. There is no signs of intracranial hemorrhage, stroke, posterior stroke. No painful eye movements or vision, unlikely wet macular degeneration acute closed angle glaucoma. No signs of hypertensive emergency or urgency. Plan at this time labs, troponin, urine. <SHAHLA Alvarez - Last Filed: 11/27/22 17:58> Differential Diagnosis Differential Diagnoses: The differential diagnosis associated with the presentation includes <SHAHLA Alvarez - Last Filed: 11/27/22 17:58> Patient's blood pressure likely elevated at home due to patient not taking her medications as prescribed. There is no signs of intracranial hemorrhage, stroke, posterior stroke. No painful eye movements or vision, unlikely wet macular degeneration acute closed angle glaucoma. No signs of hypertensive emergency or urgency. <SHAHLA Alvarez - Last Filed: 11/27/22 17:58> Admission/Observation Consideration of admission/observation: Escalation of care including admission/observation considered <SHAHLA Alvarez - Last Filed: 11/27/22 17:58> Unlikely <SHAHLA Alvarez - Last Filed: 11/27/22 17:58> Lab Data Result Diagrams: 11/27/22 16:40 11/27/22 16:40 <SHAHLA Mcdonald - Last Filed: 11/27/22 15:32> Labs: Lab Results 11/27/22 11/27/22 11/27/22 Range/Units 16:40 16:40 16:40 WBC 8.1 (4.8-10.8) X10*3/uL RBC 4.61 (4.20-5.50) X10*6/uL Hgb 14.0 (12.0-16.0) g/dl Hct 40.2 (37.0-47.0) % MCV 87.2 (80.0-98.0) fL MCH 30.4 (27.0-33.0) pg MCHC 34.8 (31.0-35.0) g/dl RDW 12.4 (11.0-16.0) % Plt Count 281 (160-400) X10*3/uL MPV 9.8 (9.4-12.3) fL Immature Gran % (Auto) 0.2 (0.0-0.4) % Neut % (Auto) 74.8 H (45-73) % Lymph % (Auto) 14.7 L (20-40) % Desha % (Auto) 6.3 (2-11) % Eos % (Auto) 3.0 (0-4) % Baso % (Auto) 1.0 (0-2) % Lymph # (Auto) 1.2 (1.2-4.9) X10*3/uL Desha # (Auto) 0.5 (0.1-1.2) X10*3/uL Eos # (Auto) 0.2 (0.0-0.4) X10*3/uL Baso # (Auto) 0.1 (0.0-0.2) X10*3/uL Abs Immat Gran (auto) 0.02 (0.00-0.03) X10*3/uL Absolute Neuts (auto) 6.1 (2.0-8.3) x10*3/uL Absolute Nucleated RBC 0.000 (0.0-0.012) X10*3/uL Nucleated RBC % (auto) 0.0 (0.0-0.2) /100WBC PT 11.0 (10.0-13.1) SEC INR 1.0 (0.9-1.1) Sodium 139 (135-145) mmol/L Potassium 3.8 (3.3-5.1) mmol/L Chloride 102 (96-108) mmol/L Carbon Dioxide 27 (22-29) mmol/L Anion Gap 14 (12-20) BUN 14 (9-16) mg/dL Creatinine 0.82 (0.5-1.4) mg/dL Estim Creat Clear Calc 76.6 Estimated GFR > 60 Random Glucose 107 (60-115) mg/dL Calcium 9.8 D (8.4-10.2) mg/dL Magnesium 2.4 (1.6-2.6) mg/dL Total Bilirubin 0.5 (0.0-1.0) mg/dL AST 26 (5-31) U/L ALT 37 H (0-31) U/L Alkaline Phosphatase 81 (39-117) U/L Troponin I High Sens (<3.5-17.0) ng/L Total Protein 7.5 (6.5-8.0) g/dL Albumin 4.7 (3.5-5.0) g/dL Urine Color Urine Appearance Urine pH (5.0-9.0) Ur Specific [place] (1.005-1.025) Urine Protein (Neg-Trace) mg/dL Urine Glucose (UA) (Negative) mg/dL Urine Ketones (Negative) mg/dL Urine Blood (Negative) Urine Nitrite (Negative) Ur Leukocyte Esterase (Negative) Influenza Type A (PCR) (Negative) Influenza Type B (PCR) (Negative) RSV RNA Qual (PCR) (Negative) SARS-CoV-2 RNA (RT-PCR) (Negative) 11/27/22 11/27/22 11/27/22 Range/Units 16:40 16:40 16:41 WBC (4.8-10.8) X10*3/uL RBC (4.20-5.50) X10*6/uL Hgb (12.0-16.0) g/dl Hct (37.0-47.0) % MCV (80.0-98.0) fL MCH (27.0-33.0) pg MCHC (31.0-35.0) g/dl RDW (11.0-16.0) % Plt Count (160-400) X10*3/uL MPV (9.4-12.3) fL Immature Gran % (Auto) (0.0-0.4) % Neut % (Auto) (45-73) % Lymph % (Auto) (20-40) % Desha % (Auto) (2-11) % Eos % (Auto) (0-4) % Baso % (Auto) (0-2) % Lymph # (Auto) (1.2-4.9) X10*3/uL Desha # (Auto) (0.1-1.2) X10*3/uL Eos # (Auto) (0.0-0.4) X10*3/uL Baso # (Auto) (0.0-0.2) X10*3/uL Abs Immat Gran (auto) (0.00-0.03) X10*3/uL Absolute Neuts (auto) (2.0-8.3) x10*3/uL Absolute Nucleated RBC (0.0-0.012) X10*3/uL Nucleated RBC % (auto) (0.0-0.2) /100WBC PT (10.0-13.1) SEC INR (0.9-1.1) Sodium (135-145) mmol/L Potassium (3.3-5.1) mmol/L Chloride (96-108) mmol/L Carbon Dioxide (22-29) mmol/L Anion Gap (12-20) BUN (9-16) mg/dL Creatinine (0.5-1.4) mg/dL Estim Creat Clear Calc Estimated GFR Random Glucose (60-115) mg/dL Calcium (8.4-10.2) mg/dL Magnesium (1.6-2.6) mg/dL Total Bilirubin (0.0-1.0) mg/dL AST (5-31) U/L ALT (0-31) U/L Alkaline Phosphatase (39-117) U/L Troponin I High Sens < 3.5 (<3.5-17.0) ng/L Total Protein (6.5-8.0) g/dL Albumin (3.5-5.0) g/dL Urine Color Yellow Urine Appearance Clear Urine pH 7.0 (5.0-9.0) Ur Specific [place] 1.010 (1.005-1.025) Urine Protein 30 (1+) H (Neg-Trace) mg/dL Urine Glucose (UA) Negative (Negative) mg/dL Urine Ketones Negative (Negative) mg/dL Urine Blood Negative (Negative) Urine Nitrite Negative (Negative) Ur Leukocyte Esterase Negative (Negative) Influenza Type A (PCR) NEGATIVE (Negative) Influenza Type B (PCR) NEGATIVE (Negative) RSV RNA Qual (PCR) NEGATIVE (Negative) SARS-CoV-2 RNA (RT-PCR) NEGATIVE (Negative) <SHAHLA Mcdonald - Last Filed: 11/27/22 15:32> Lab Results 11/27/22 11/27/22 11/27/22 Range/Units 16:40 16:40 16:40 WBC 8.1 (4.8-10.8) X10*3/uL RBC 4.61 (4.20-5.50) X10*6/uL Hgb 14.0 (12.0-16.0) g/dl Hct 40.2 (37.0-47.0) % MCV 87.2 (80.0-98.0) fL MCH 30.4 (27.0-33.0) pg MCHC 34.8 (31.0-35.0) g/dl RDW 12.4 (11.0-16.0) % Plt Count 281 (160-400) X10*3/uL MPV 9.8 (9.4-12.3) fL Immature Gran % (Auto) 0.2 (0.0-0.4) % Neut % (Auto) 74.8 H (45-73) % Lymph % (Auto) 14.7 L (20-40) % Desha % (Auto) 6.3 (2-11) % Eos % (Auto) 3.0 (0-4) % Baso % (Auto) 1.0 (0-2) % Lymph # (Auto) 1.2 (1.2-4.9) X10*3/uL Desha # (Auto) 0.5 (0.1-1.2) X10*3/uL Eos # (Auto) 0.2 (0.0-0.4) X10*3/uL Baso # (Auto) 0.1 (0.0-0.2) X10*3/uL Abs Immat Gran (auto) 0.02 (0.00-0.03) X10*3/uL Absolute Neuts (auto) 6.1 (2.0-8.3) x10*3/uL Absolute Nucleated RBC 0.000 (0.0-0.012) X10*3/uL Nucleated RBC % (auto) 0.0 (0.0-0.2) /100WBC PT 11.0 (10.0-13.1) SEC INR 1.0 (0.9-1.1) Sodium 139 (135-145) mmol/L Potassium 3.8 (3.3-5.1) mmol/L Chloride 102 (96-108) mmol/L Carbon Dioxide 27 (22-29) mmol/L Anion Gap 14 (12-20) BUN 14 (9-16) mg/dL Creatinine 0.82 (0.5-1.4) mg/dL Estim Creat Clear Calc 76.6 Estimated GFR > 60 Random Glucose 107 (60-115) mg/dL Calcium 9.8 D (8.4-10.2) mg/dL Magnesium 2.4 (1.6-2.6) mg/dL Total Bilirubin 0.5 (0.0-1.0) mg/dL AST 26 (5-31) U/L ALT 37 H (0-31) U/L Alkaline Phosphatase 81 (39-117) U/L Troponin I High Sens (<3.5-17.0) ng/L Total Protein 7.5 (6.5-8.0) g/dL Albumin 4.7 (3.5-5.0) g/dL Urine Color Urine Appearance Urine pH (5.0-9.0) Ur Specific [place] (1.005-1.025) Urine Protein (Neg-Trace) mg/dL Urine Glucose (UA) (Negative) mg/dL Urine Ketones (Negative) mg/dL Urine Blood (Negative) Urine Nitrite (Negative) Ur Leukocyte Esterase (Negative) Influenza Type A (PCR) (Negative) Influenza Type B (PCR) (Negative) RSV RNA Qual (PCR) (Negative) SARS-CoV-2 RNA (RT-PCR) (Negative) 11/27/22 11/27/22 11/27/22 Range/Units 16:40 16:40 16:41 WBC (4.8-10.8) X10*3/uL RBC (4.20-5.50) X10*6/uL Hgb (12.0-16.0) g/dl Hct (37.0-47.0) % MCV (80.0-98.0) fL MCH (27.0-33.0) pg MCHC (31.0-35.0) g/dl RDW (11.0-16.0) % Plt Count (160-400) X10*3/uL MPV (9.4-12.3) fL Immature Gran % (Auto) (0.0-0.4) % Neut % (Auto) (45-73) % Lymph % (Auto) (20-40) % Desha % (Auto) (2-11) % Eos % (Auto) (0-4) % Baso % (Auto) (0-2) % Lymph # (Auto) (1.2-4.9) X10*3/uL Desha # (Auto) (0.1-1.2) X10*3/uL Eos # (Auto) (0.0-0.4) X10*3/uL Baso # (Auto) (0.0-0.2) X10*3/uL Abs Immat Gran (auto) (0.00-0.03) X10*3/uL Absolute Neuts (auto) (2.0-8.3) x10*3/uL Absolute Nucleated RBC (0.0-0.012) X10*3/uL Nucleated RBC % (auto) (0.0-0.2) /100WBC PT (10.0-13.1) SEC INR (0.9-1.1) Sodium (135-145) mmol/L Potassium (3.3-5.1) mmol/L Chloride (96-108) mmol/L Carbon Dioxide (22-29) mmol/L Anion Gap (12-20) BUN (9-16) mg/dL Creatinine (0.5-1.4) mg/dL Estim Creat Clear Calc Estimated GFR Random Glucose (60-115) mg/dL Calcium (8.4-10.2) mg/dL Magnesium (1.6-2.6) mg/dL Total Bilirubin (0.0-1.0) mg/dL AST (5-31) U/L ALT (0-31) U/L Alkaline Phosphatase (39-117) U/L Troponin I High Sens < 3.5 (<3.5-17.0) ng/L Total Protein (6.5-8.0) g/dL Albumin (3.5-5.0) g/dL Urine Color Yellow Urine Appearance Clear Urine pH 7.0 (5.0-9.0) Ur Specific [place] 1.010 (1.005-1.025) Urine Protein 30 (1+) H (Neg-Trace) mg/dL Urine Glucose (UA) Negative (Negative) mg/dL Urine Ketones Negative (Negative) mg/dL Urine Blood Negative (Negative) Urine Nitrite Negative (Negative) Ur Leukocyte Esterase Negative (Negative) Influenza Type A (PCR) NEGATIVE (Negative) Influenza Type B (PCR) NEGATIVE (Negative) RSV RNA Qual (PCR) NEGATIVE (Negative) SARS-CoV-2 RNA (RT-PCR) NEGATIVE (Negative) <SHAHLA Alvarez - Last Filed: 11/27/22 17:58> Independent Interpretation I performed an independent interpretation of an: EKG (Ventricular rate of 64, ME prolonged, QRS normal, QT/QTC normal. EKG with sinus rhythm with first-degree AV block. No signs of acute ischemia.) and Plain X-Ray <SHAHLA Alvarez - Last Filed: 11/27/22 17:58> Radiology Impression Discussion of test interpretation with radiology: I have reviewed the radiologist's reading. <SHAHLA Alvarez - Last Filed: 11/27/22 17:58> Chronic Conditions Patient?s care impacted by: Hypertension <SHAHLA Alvarez - Last Filed: 11/27/22 17:58> Core Measures AMI core measures followed: Yes <SHAHLA Alvarez - Last Filed: 11/27/22 17:58> Measure exclusions: not indicated <SHAHLA Alvarez - Last Filed: 11/27/22 17:58> Critical Care Time Critical Care Time Critical Care Time: No <SHAHLA Alvarez - Last Filed: 11/27/22 17:58> Discharge Plan Discharge Clinical Impression: Normal physical exam, Atrioventricular block, first degree <SHAHLA Mcdonald - Last Filed: 11/27/22 15:32> Patient Disposition: Home, Self-Care <SHAHLA Mcdonald - Last Filed: 11/27/22 15:32> Instructions: Normal Exam (ED) <SHAHLA Mcdonald Last Filed: 11/27/22 15:32> Additional Instructions: Take your medications as prescribed. If you were prescribed antibiotics today, it is important that you take your medication to their entirety, do not skip any doses, do not finish them early. Follow-up with your primary care provider this week. Follow-up with Nephrology as soon as possible Return to the emergency department with new or worsening symptoms. Such as fevers, chills, chest pain, shortness of breath, nausea, vomiting, dizziness, headache, vision changes, lethargy In case of emergency call 911 Check your blood pressure Saturday, Saturday, Saturday, write it down and share with your primary care provider Your EKG did show first-degree AV block. Please mention this to her primary care provider. <SHAHLA Mcdonald - Last Filed: 11/27/22 15:32> Prescriptions: No Action doxazosin [Cardura] 1 mg tablet 1 mg PO DAILY Qty: 90 1RF losartan 25 mg tablet See Rx Instructions PO DAILY Rx Instructions: 1.5-2 tablets PO daily; hydrochlorothiazide 25 mg tablet 12.5 mg PO DAILY escitalopram oxalate 5 mg tablet 5 mg PO DAILY lorazepam [Ativan] 0.5 mg tablet 0.5 mg PO DAILY PRN <SHAHLA Mcdonald - Last Filed: 11/27/22 15:32> Referrals: Ag Angel MD [Primary Care Provider] - 2 days Margaret Castellano MD [Physician] - 1 day <SHAHLA Mcdonald - Last Filed: 11/27/22 15:32>
--- NOTE | 2022-11-27 15:31 | ECG_ITS ---
Test Reason : HIGH BLOOD PRESSURE Blood Pressure : / mmHG Vent. Rate : 064 BPM Atrial Rate : 064 BPM P-R Int : 224 ms QRS Dur : 088 ms QT Int : 386 ms P-R-T Axes : 035 -15 022 degrees QTc Int : 398 ms Sinus rhythm with 1st degree A-V block with Premature atrial complexes Anteroseptal infarct (cited on or before 26-AUG-2005) Abnormal ECG When compared with ECG of 28-SEP-2020 15:49, Premature atrial complexes are now Present NC interval has increased Referred By: Maritza Miller Electronically Signed By:MICH NUNO
[2022-11-27 16:49] LABS: MANUAL DIFF FLAG NO
[2022-11-27 16:54] LABS: Basophils Absolute Auto 0.1 X10*3/uL (0.0-0.2); Eosinophils Absolute Auto 0.2 X10*3/uL (0.0-0.4); Hematocrit 40.2 % (37.0-47.0); Imm Gran Abs Auto 0.02 X10*3/uL (0.00-0.03); Imm Gran Pct Auto 0.2 % (0.0-0.4); Lymphocytes Absolute Auto 1.2 X10*3/uL (1.2-4.9); Lymphocytes Percent Auto 14.7 % (20-40); Mean Corpuscular HGB Conc 34.8 g/dl (31.0-35.0); Mean Corpuscular Hemoglobin 30.4 pg (27.0-33.0); Mean Corpuscular Volume 87.2 fL (80.0-98.0); Mean Platelet Volume 9.8 fL (9.4-12.3); Monocytes Absolute Auto 0.5 X10*3/uL (0.1-1.2); Monocytes Percent Auto 6.3 % (2-11); Neutrophils Absolute Auto 6.1 x10*3/uL (2.0-8.3); Neutrophils Percent Auto 74.8 % (45-73); Platelet Count 281 X10*3/uL (160-400); Red Blood Count 4.61 X10*6/uL (4.20-5.50); Red Cell Distribution Width 12.4 % (11.0-16.0); White Blood Count 8.1 X10*3/uL (4.8-10.8)
[2022-11-27 17:01] LABS: Appearance Urine Clear; Color Urine Yellow; Glucose Urine UA Negative (Negative); Leukocyte Esterase Urine Negative (Negative); Nitrite Urine Negative (Negative); UMIC TRIGGER UACC YES; Urine Blood Negative (Negative); Urine Ketones Negative (Negative); Urine Protein 30 (1+) mg/dL (Neg-Trace)
[2022-11-27 17:20] LABS: Alanine Aminotransferase 37 U/L (0-31); Albumin Level 4.7 g/dL (3.5-5.0); Alkaline Phosphatase 81 U/L (39-117); Anion Gap 14 (12-20); Aspartate Amino Transferase 26 U/L (5-31); Bilirubin Total 0.5 mg/dL (0.0-1.0); Blood Urea Nitrogen 14 mg/dL (9-16); Calcium 9.8 mg/dL (8.4-10.2); Carbon Dioxide 27 mmol/L (22-29); Chloride 102 mmol/L (96-108); Creatinine Clr Calc Pharmacy 76.6; Estimated Glomerular Filt Rate > 60; Glucose Random 107 mg/dL (60-115); Magnesium 2.4 mg/dL (1.6-2.6); Potassium 3.8 mmol/L (3.3-5.1); Sodium 139 mmol/L (135-145); Total Protein 7.5 g/dL (6.5-8.0)
[2022-11-27 17:38] LABS: Influenza A PCR NEGATIVE (Negative); Influenza B PCR NEGATIVE (Negative); Resp Syncy Virus RNA Qual PCR NEGATIVE (Negative); SARS COV2 PCR INHOUSE NEGATIVE (Negative)
[2022-11-27 17:43] LABS: Troponin-I High Sensitivity < 3.5 ng/L (<3.5-17.0)
[2022-11-27 18:12] LABS: Bacteria Urine None Seen (None Seen); Hyaline Casts Urine 0-2 /LPF (0-2); RBC Urine 0-2 /HPF (0-2); Squamous Epithelial Cell Urine 0-2 /HPF (0-2); WBC Urine 0-5 /HPF (0-5)
[2022-11-27 18:22] VITALS: BP 123/68; PULSE 68; RESP 18; TEMP 36.8; O2SAT 98
== END 2022-11-27 18:38 | disposition home or self-care (01) ==
PROVIDERS: Physician Assistant; Physician Assistant Medical; Emergency Provider Student in an Organized Health Care Education/Training Program; PCP Family Medicine
DX: I44.0 Atrioventricular block, first degree (principal); I10 Essential (primary) hypertension; Z20.822 Contact with and (suspected) exposure to COVID-19; Z20.828 Contact with and (suspected) exposure to other viral communicable diseases
CPT/HCPCS: 0241U; 36415; 71046; 80053; 81001; 81003; 83735; 84484; 85025; 85610; 93005; 99283

== ENCOUNTER 2022-12-19 08:54 | Emergency (ER) | payer OTHER, SELFPAY ==
[2022-12-19 09:13] VITALS: BP 141/88; PULSE 99; RESP 18; TEMP 36.4; O2SAT 97; BMI 33.5
--- NOTE | 2022-12-19 09:17 | ED_ITS ---
HPI - General Adult General Chief complaint: General Medical Stated complaint: nausea/ R arm tingle Time Seen by Provider: 12/19/22 09:17 Source: patient Mode of arrival: ambulatory Limitations: no limitations History of Present Illness HPI narrative: 57 yo female with history of HTN, IgA nephropathy, 1st degree heart block and palpitations presents to the ER for evaluation of transient episode of RUE tingling and nausea that occurred this morning shortly after waking up while she was laying in bed. She states she had gradual onset of tingling sensation of pins and needles in her right lower arm that radiated up into her upper right arm. She then suddenly felt nauseated and weird. She went to the bathroom to throw but started to feel better. The tingling sensation subsided. She states nausea slowly improved as well. She took her BP meds and then came to the ER for further evaluation. She denies any associated chest pain, SOB, weakness, numbness or other symptoms during this episode. No difficultly speaking and no facial droop noted. She arrives to the ER feeling better. She is requesting an EKG. MD complaint: RUE tingling and nausea Onset (ago): minute(s) Location: right and upper extremity Radiation: proximal Severity: moderate Quality: other (tingling) Pain Consistency: now resolved Relieving factors: none Exacerbating factors: none Associated symptoms: nausea/vomiting Treatments prior to arrival: none Related Data Home Medications Medication Instructions Recorded Confirmed hydrochlorothiazide 25 mg tablet 12.5 mg PO DAILY 11/24/20 01/17/21 losartan 25 mg tablet See Rx Instructions PO DAILY 11/24/20 01/17/21 escitalopram oxalate 5 mg tablet 5 mg PO DAILY 12/29/20 01/17/21 lorazepam 0.5 mg tablet (Ativan) 0.5 mg PO DAILY PRN 12/29/20 01/17/21 Previous Rx's Medication Instructions Recorded doxazosin 1 mg tablet (Cardura) 1 mg PO DAILY #90 tabs 02/09/21 hydroxyzine HCl 25 mg tablet 25 mg PO BEDTIME PRN anxiety #10 11/27/22 tabs Allergies Allergy/AdvReac Type Severity Reaction Status Date / Time amoxicillin [AMOXICILLIN] Allergy Unknown HIVES Verified 01/17/21 14:55 clarithromycin Allergy Unknown rash Verified 01/17/21 14:55 clindamycin [CLINDAMYCIN] Allergy Unknown RASH Verified 01/17/21 14:55 metronidazole [From FLAGYL] Allergy Unknown RASH Verified 01/17/21 14:55 Review of Systems Review of Systems: Yes all other systems are reviewed and are negative [facility] Past Medical History Medical History Chronic renal failure Essential hypertension Hypertension Hypoglycemia Surgical History No pertinent past surgical history Family History Family History Mother HTN (hypertension) Social History Social History Alcohol intake: never Smoked in Last 30 Days: No Use of substances other than those prescribed or required for medical reasons: No Advance Directives: No Physical Exam ED Vital Signs: Vital Signs - 24 hr 12/19/22 09:13 Temperature 97.5 F Pulse Rate 99 Respiratory Rate 18 Blood Pressure 141/88 H Pulse Oximetry 97 Oxygen Delivery Method Room Air BMI result Body Mass Index 33.5 Appearance: Alert. Oriented X3. No acute distress. Head: normocephalic, atraumatic. Eyes: Pupils equal, round and reactive to light. ENT: Pharynx normal. No tonsillar swelling or exudate. Neck: Normal inspection. Neck supple. CVS: Normal heart rate and rhythm. Pulses normal. Respiratory: No respiratory distress. Breath sounds normal. Abdomen: Soft and nontender. +BS x4 Skin: Skin warm and dry. Normal skin color. Normal skin turgor. No rashes. Extremities: No lower extremity edema. No joint swelling. Neuro/psych: Oriented X 3. No motor deficit. No sensory deficit. CN II-XII intact. Normal speech and cognition. NIH 0 Course Reevaluation(s) Reevaluation #1: feeling at her baseline. stable for d/c home Medications Administered Discontinued Medications Generic Name Dose Route Start Last Admin Trade Name Freq PRN Reason Stop Dose Admin Ondansetron HCl 4 mg 12/19/22 09:17 12/19/22 09:27 Ondansetron Odt 4 Mg Tab.Rapdis TRANSLINGU 12/19/22 09:18 4 mg ONCE ONE Administration Medical Decision Making Medical Decision Making [facility] Narrative: 57-year-old female with a history of HTN, first-degree heart block, heart palpitations who presents to the ER for evaluation of transient sensation of pins and needles in the right upper extremity as well as some nausea. On arrival to the ER her pins and needle sensation is completely resolved. No weakness. Her neuro exam is completely intact. NIH 0. Doubt TIA. She is anxious, asking for an EKG on arrival. EKG is unchanged from prior. Lab workup is unremarkable. She feels well. At this time she is stable for d/c home with outpatient followup. Return precautions given. Differential Diagnosis Differential Diagnoses: The differential diagnosis associated with the presentation includes anxiety, panic attack, hypoglycmemia, TIA, CVA, cervical radiculopathy, paresthesias, electrolyte derrangement, thyroid issue Lab Data [facility] Lab Attestation statement: I reviewed the patient's lab results. 12/19/22 09:33 12/19/22 09:33 Labs: Lab Results 12/19/22 12/19/22 12/19/22 Range/Units 09:33 09:33 09:57 WBC 5.3 (4.8-10.8) X10*3/uL RBC 4.38 (4.20-5.50) X10*6/uL Hgb 13.0 (12.0-16.0) g/dl Hct 39.5 (37.0-47.0) % MCV 90.2 (80.0-98.0) fL MCH 29.7 (27.0-33.0) pg MCHC 32.9 (31.0-35.0) g/dl RDW 12.6 (11.0-16.0) % Plt Count 235 (160-400) X10*3/uL MPV 9.9 (9.4-12.3) fL Immature Gran % (Auto) 0.2 (0.0-0.4) % Neut % (Auto) 60.4 (45-73) % Lymph % (Auto) 25.9 (20-40) % [place] % (Auto) 7.6 (2-11) % Eos % (Auto) 4.8 H (0-4) % Baso % (Auto) 1.1 (0-2) % Lymph # (Auto) 1.4 (1.2-4.9) X10*3/uL [place] # (Auto) 0.4 (0.1-1.2) X10*3/uL Eos # (Auto) 0.3 (0.0-0.4) X10*3/uL Baso # (Auto) 0.1 (0.0-0.2) X10*3/uL Abs Immat Gran (auto) 0.01 (0.00-0.03) X10*3/uL Absolute Neuts (auto) 3.2 (2.0-8.3) x10*3/uL Absolute Nucleated RBC 0.000 (0.0-0.012) X10*3/uL Nucleated RBC % (auto) 0.0 (0.0-0.2) /100WBC Sodium 141 (135-145) mmol/L Potassium 3.9 (3.3-5.1) mmol/L Chloride 105 (96-108) mmol/L Carbon Dioxide 28 (22-29) mmol/L Anion Gap 12 (12-20) BUN 17 H (9-16) mg/dL Creatinine 0.98 (0.5-1.4) mg/dL Estim Creat Clear Calc 65.8 Estimated GFR 58 Random Glucose 124 H (60-115) mg/dL Calcium 9.1 D (8.4-10.2) mg/dL Magnesium 2.2 (1.6-2.6) mg/dL Total Bilirubin 0.4 (0.0-1.0) mg/dL Direct Bilirubin 0.1 (0.0-0.5) mg/dL AST 27 (5-31) U/L ALT 37 H (0-31) U/L Alkaline Phosphatase 75 (39-117) U/L Total Protein 6.5 (6.5-8.0) g/dL Albumin 4.2 (3.5-5.0) g/dL TSH 2.77 (0.32-4.0) uIU/mL Urine Color Dark Yellow Urine Appearance Cloudy Urine pH 6.0 (5.0-9.0) Ur Specific [place] 1.025 (1.005-1.025) Urine Protein 100 (2+) H (Neg-Trace) mg/dL Urine Glucose (UA) Negative (Negative) mg/dL Urine Ketones Negative (Negative) mg/dL Urine Blood Negative (Negative) Urine Nitrite Negative (Negative) Ur Leukocyte Esterase Trace H (Negative) Urine RBC 3-5 H (0-2) /HPF Urine WBC 0-5 (0-5) /HPF Ur Squamous Epith Cells >20 (0-2) /HPF Other Crystals Present Urine Bacteria 1+ (None Seen) Hyaline Casts 0-2 (0-2) /LPF Independent Interpretation I performed an independent interpretation of an: EKG Interpretation: EKG with normal sinus rhythm, ventricular rate 82 beats per minute, first-degree AV block is present with AR interval 228 MS, Q-waves present in leads 3, AVF, V1, V2, all old and were seen on prior EKG. No ST segment elevations or depressions. External Record Review External record reviewed: Outpatient record and Prior outpatient labs Chronic Conditions Patient?s care impacted by: Hypertension Critical Care Time Critical Care Time Critical Care Time: No Discharge Plan Discharge Clinical Impression: Paresthesia of arm Patient Disposition: Home, Self-Care Instructions: Paresthesia (ED) Additional Instructions: Your lab workup today was unremarkable. Your EKG was unchanged from prior. Recommend rest, plenty of oral hydration today. Follow-up with your primary care doctor and rn correctional. If you develop new or worsening symptoms call 911 or come back to the ER for further evaluation. Prescriptions: No Action doxazosin [Cardura] 1 mg tablet 1 mg PO DAILY Qty: 90 1RF hydroxyzine HCl 25 mg tablet 25 mg PO BEDTIME PRN (Reason: anxiety) Qty: 10 0RF losartan 25 mg tablet See Rx Instructions PO DAILY Rx Instructions: 1.5-2 tablets PO daily; hydrochlorothiazide 25 mg tablet 12.5 mg PO DAILY escitalopram oxalate 5 mg tablet 5 mg PO DAILY lorazepam [Ativan] 0.5 mg tablet 0.5 mg PO DAILY PRN
--- NOTE | 2022-12-19 09:23 | ECG_ITS ---
Test Reason : nausea Blood Pressure : / mmHG Vent. Rate : 082 BPM Atrial Rate : 082 BPM P-R Int : 228 ms QRS Dur : 076 ms QT Int : 372 ms P-R-T Axes : 067 -15 029 degrees QTc Int : 434 ms Sinus rhythm with 1st degree A-V block Low voltage QRS Septal infarct (cited on or before 26-AUG-2005) Abnormal ECG When compared with ECG of 27-NOV-2022 16:57, No significant changes seen Referred By: Aspen Pal Electronically Signed By:MICH NUNO
[2022-12-19] MEDS: Ondansetron ODT 4 MG TAB.RAPDIS TRANSLINGU (09:27)
[2022-12-19 09:41] LABS: MANUAL DIFF FLAG NO
--- NOTE | 2022-12-19 09:45 | PC.NURSE ---
Patient here after some pins and needles feeling this morning when waking up followed by some nausea. Patient generally well appearing sitting calmly on bed. Given emesis bag for nausea.
[2022-12-19 09:48] LABS: Basophils Absolute Auto 0.1 X10*3/uL (0.0-0.2); Basophils Percent Auto 1.1 % (0-2); Eosinophils Absolute Auto 0.3 X10*3/uL (0.0-0.4); Eosinophils Percent Auto 4.8 % (0-4); Hematocrit 39.5 % (37.0-47.0); Imm Gran Abs Auto 0.01 X10*3/uL (0.00-0.03); Imm Gran Pct Auto 0.2 % (0.0-0.4); Lymphocytes Absolute Auto 1.4 X10*3/uL (1.2-4.9); Lymphocytes Percent Auto 25.9 % (20-40); Mean Corpuscular HGB Conc 32.9 g/dl (31.0-35.0); Mean Corpuscular Hemoglobin 29.7 pg (27.0-33.0); Mean Corpuscular Volume 90.2 fL (80.0-98.0); Mean Platelet Volume 9.9 fL (9.4-12.3); Monocytes Absolute Auto 0.4 X10*3/uL (0.1-1.2); Monocytes Percent Auto 7.6 % (2-11); Neutrophils Absolute Auto 3.2 x10*3/uL (2.0-8.3); Neutrophils Percent Auto 60.4 % (45-73); Platelet Count 235 X10*3/uL (160-400); Red Blood Count 4.38 X10*6/uL (4.20-5.50); Red Cell Distribution Width 12.6 % (11.0-16.0); White Blood Count 5.3 X10*3/uL (4.8-10.8)
[2022-12-19 10:04] LABS: Appearance Urine Cloudy; Color Urine Dark Yellow; Glucose Urine UA Negative (Negative); Leukocyte Esterase Urine Trace (Negative); Nitrite Urine Negative (Negative); Specific Gravity - Urine 1.025 (1.005-1.025); UMIC TRIGGER UACC YES; Urine Blood Negative (Negative); Urine Ketones Negative (Negative); Urine Protein 100 (2+) mg/dL (Neg-Trace)
[2022-12-19 10:07] LABS: Alanine Aminotransferase 37 U/L (0-31); Albumin Level 4.2 g/dL (3.5-5.0); Alkaline Phosphatase 75 U/L (39-117); Anion Gap 12 (12-20); Aspartate Amino Transferase 27 U/L (5-31); Bilirubin Direct 0.1 mg/dL (0.0-0.5); Bilirubin Total 0.4 mg/dL (0.0-1.0); Blood Urea Nitrogen 17 mg/dL (9-16); Calcium 9.1 mg/dL (8.4-10.2); Carbon Dioxide 28 mmol/L (22-29); Chloride 105 mmol/L (96-108); Creatinine Clr Calc Pharmacy 65.8; Estimated Glomerular Filt Rate 58; Glucose Random 124 mg/dL (60-115); Magnesium 2.2 mg/dL (1.6-2.6); Potassium 3.9 mmol/L (3.3-5.1); Sodium 141 mmol/L (135-145); Total Protein 6.5 g/dL (6.5-8.0)
[2022-12-19 10:17] LABS: Bacteria Urine 1+ (None Seen); Hyaline Casts Urine 0-2 /LPF (0-2); Other Crystals Urine Present; Squamous Epithelial Cell Urine >20 /HPF (0-2); WBC Urine 0-5 /HPF (0-5)
[2022-12-19 10:21] LABS: TSH reflex Free T4 2.77 uIU/mL (0.32-4.0)
== END 2022-12-19 10:45 | disposition home or self-care (01) ==
PROVIDERS: Physician Assistant; Emergency Provider Emergency Medicine Emergency Medical Services; PCP Family Medicine
DX: R20.2 Paresthesia of skin (principal); I44.0 Atrioventricular block, first degree; R07.89 Other chest pain; Z79.899 Other long term (current) drug therapy
CPT/HCPCS: 36415; 80048; 80076; 81001; 81003; 83735; 84443; 85025; 93005; 99283; 99284

== ENCOUNTER → 2023-01-07 15:15 | Outpatient (BNVA) | payer OTHER, SELFPAY | PROVIDERS: PCP Family Medicine; Referring Provider Family Medicine; Visit Provider Internal Medicine ==

== ENCOUNTER 2023-03-29 13:43 | Outpatient (REF) | payer OTHER, SELFPAY ==
[2023-03-29 13:59] LABS: MANUAL DIFF FLAG NO
[2023-03-29 14:27] LABS: Basophils Absolute Auto 0.1 X10*3/uL (0.0-0.2); Eosinophils Absolute Auto 0.2 X10*3/uL (0.0-0.4); Eosinophils Percent Auto 2.4 % (0-4); Hematocrit 38.1 % (37.0-47.0); Hemoglobin 12.7 g/dl (12.0-16.0); Imm Gran Abs Auto 0.03 X10*3/uL (0.00-0.03); Imm Gran Pct Auto 0.4 % (0.0-0.4); Lymphocytes Absolute Auto 1.5 X10*3/uL (1.2-4.9); Lymphocytes Percent Auto 20.9 % (20-40); Mean Corpuscular HGB Conc 33.3 g/dl (31.0-35.0); Mean Corpuscular Volume 90.1 fL (80.0-98.0); Mean Platelet Volume 9.8 fL (9.4-12.3); Monocytes Absolute Auto 0.5 X10*3/uL (0.1-1.2); Monocytes Percent Auto 6.8 % (2-11); Neutrophils Absolute Auto 4.8 x10*3/uL (2.0-8.3); Neutrophils Percent Auto 68.5 % (45-73); Platelet Count 259 X10*3/uL (160-400); Red Blood Count 4.23 X10*6/uL (4.20-5.50); Red Cell Distribution Width 12.8 % (11.0-16.0); White Blood Count 7.1 X10*3/uL (4.8-10.8)
[2023-03-29 14:50] LABS: Appearance Urine Clear; Color Urine Yellow; Glucose Urine UA Negative (Negative); Leukocyte Esterase Urine Trace (Negative); Nitrite Urine Negative (Negative); PH 6.5 (5.0-9.0); Specific Gravity - Urine 1.015 (1.005-1.025); UMIC TRIGGER UA YES; Urine Blood Negative (Negative); Urine Ketones Negative (Negative); Urine Protein 30 (1+) mg/dL (Neg-Trace)
[2023-03-29 14:53] LABS: Bacteria Urine None Seen (None Seen); Hyaline Casts Urine 0-2 /LPF (0-2); RBC Urine 0-2 /HPF (0-2); WBC Urine 0-5 /HPF (0-5)
[2023-03-29 15:00] LABS: Anion Gap 17 (12-20); Blood Urea Nitrogen 16 mg/dL (9-16); Calcium 9.7 mg/dL (8.4-10.2); Carbon Dioxide 22 mmol/L (22-29); Chloride 104 mmol/L (96-108); Estimated Glomerular Filt Rate > 60; Iron 84 mcg/dL (30-160); Percent Iron Saturation 31 % (15-50); Potassium 3.7 mmol/L (3.3-5.1); Sodium 139 mmol/L (135-145); Total Iron Binding Capacity 270 mcg/dL (228-428); Unsaturated Iron Binding 186 ug/dL
[2023-03-29 15:17] LABS: Vitamin D 25-OH Total 36.1 ng/mL (>30)
[2023-03-29 15:27] LABS: Microalbum/Creatinine Ratio Ur 115.7 ug/mg cr; Total Protein Urine Random 34 mg/dL (<12)
== END 2023-03-29 13:44 | disposition home or self-care (01) ==
LOC: HO.LAB 13:43
PROVIDERS: Visit Provider Internal Medicine Nephrology
DX: N02.8 Recurrent and persistent hematuria with other morphologic changes (principal); R80.1 Persistent proteinuria, unspecified; I12.9 Hypertensive chronic kidney disease with stage 1 through stage 4 chronic kidney disease, or unspecified chronic kidney disease; N18.2 Chronic kidney disease, stage 2 (mild); Z13.29 Encounter for screening for other suspected endocrine disorder
CPT/HCPCS: 36415; 80051; 81001; 82043; 82306; 82310; 82565; 83540; 84156; 84520; 85025

== ENCOUNTER 2023-12-24 15:38 | Outpatient (REF) | payer MEDICAID, SELFPAY ==
[2023-12-24 18:21] LABS: Creatinine Urine 81.79 mg/dL; Protein/Creatinine Ratio, Ur 0.34 (<0.2); Total Protein Urine Random 28 mg/dL (<12)
[2023-12-24 19:18] LABS: Anion Gap 10 (12-20); Blood Urea Nitrogen 16 mg/dL (9-16); Carbon Dioxide 31 mmol/L (22-29); Chloride 103 mmol/L (96-108); Estimated Glomerular Filt Rate > 60; Potassium 4.1 mmol/L (3.3-5.1); Sodium 140 mmol/L (135-145)
[2023-12-25 05:32] LABS: Parathyroid Hormone Intact 61.9 pg/mL (8.7-77.1)
[2023-12-29 05:54] LABS: VITAMIN D (1,25 OH) D3 25 pg/mL; Vit D (1,25-Dihydroxy) Total 25 pg/mL (18-72); Vitamin D (1,25 OH) D2 <8 pg/mL
== END 2023-12-24 15:39 | disposition home or self-care (01) ==
LOC: HO.LAB 15:38
PROVIDERS: PCP Family Medicine; Visit Provider Internal Medicine Nephrology
DX: N02.8 Recurrent and persistent hematuria with other morphologic changes (principal); R80.1 Persistent proteinuria, unspecified
CPT/HCPCS: 36415; 80051; 82310; 82565; 82570; 82652; 83970; 84156; 84520

== ENCOUNTER 2024-01-08 11:07 | Outpatient (AMB) | payer MEDICAID, SELFPAY ==
--- NOTE | 2024-01-08 11:09 | A.OFFVIS_ITS ---
Vital Signs 01/08/24 11:10 Height 5 ft 3 in Weight 187 lb 6.287 oz BMI 33.2 BP 120/68 Blood Pressure Location Lt brachial Position Sitting Pulse 83 Pulse Source Monitor Pulse Oximetry (%) 98 Oxygen Delivery Method Room Air Intake Visit Reasons: 1 yr f/up r/s 5-6 Allergies amoxicillin [AMOXICILLIN] Allergy (Unknown, Verified 01/07/23 15:34) HIVES clarithromycin Allergy (Unknown, Verified 01/07/23 15:34) rash clindamycin [CLINDAMYCIN] Allergy (Unknown, Verified 01/07/23 15:34) RASH metronidazole [From FLAGYL] Allergy (Unknown, Verified 01/07/23 15:34) RASH Medication List - Last Reconciled 01/08/24 by Shin Ash MD amlodipine 5 mg PO DAILY PRN escitalopram oxalate 20 mg PO DAILY lorazepam (Ativan) 0.5 mg PO DAILY PRN losartan-hydrochlorothiazide 100-25 mg 1 tab PO DAILY omeprazole 20 mg PO DAILY trazodone 100 mg PO DAILY HPI Comments Details: Belgica returns for follow-up. She has a history of labile blood pressures and IgA nephropathy. Her kidney function however has been normal. She gets periods of suddenly feeling unwell and weakness for which we could not really find any reasons from cardiac. She had completed tests including echocardiogram, stress test and 30 day event monitoring which were uneventful. No new issues in the last year. She states that she is fine. No symptoms like angina. She is concerned that she has gained a lot of weight. [facility] Medical History Essential hypertension Hypoglycemia Hypertension Chronic renal failure Surgical History No pertinent past surgical history Family History Mother HTN (hypertension) Social History Alcohol intake: never Review of Systems Const Denies weakness ENT Denies dizziness Card Denies chest pain, Denies chest pain with activity, Denies syncope, Denies rapid heart rate, Denies pedal edema, Denies edema, Denies leg edema, Denies lightheadedness, Denies palpitations, Denies dyspnea, Denies dyspnea on exertion and Denies orthopnea Resp Denies cough, Denies dyspnea and Denies dyspnea on exertion GI Denies hematochezia and Denies change in stool character Musc Denies abnormal gait, Denies muscle cramps, Denies muscle weakness, Denies numbness, Denies radiating pain into limb and Denies tingling Neuro Denies abnormal gait, Denies dizziness, Denies syncope, Denies numbness, Denies tingling and Denies weakness Endo Denies palpitations Physical Exam Vital Signs: Last Vital Signs Pulse 83 01/08/24 11:10 BP 120/68 01/08/24 11:10 Pulse Ox 98 01/08/24 11:10 Oxygen Delivery Method Room Air 01/08/24 11:10 BMI result Body Mass Index 33.2 Const General: comfortable and no acute distress Orientation/consciousness: patient oriented x3 HEENT Other: Unremarkable Head: Yes normal to inspection Neck Neck: Yes normal visual inspection Chest Chest palpation & inspection: normal inspection of the chest Resp Auscultation: clear to auscultation bilaterally Cardio Palpation: normal PMI Heart sounds: S1 normal heart sound present, S2 normal heart sound present, no gallops, Murmur heart sound present systolic I/ and at the right sternal b order and no rubs GI Palpation (GI): Soft to palpation Back/Spine/Pelvis Other: unremarkable Skin General skin exam: no rashes or lesions noted Neuro General: patient oriented x3 Extrem General: Yes normal to inspection Psych Mental Status: mental status grossly normal Office Procedures EKG Details: EKG with sinus rhythm at 83/Min; can not exclude old septal infarct but could be from body habitus and lead placement; borderline MN prolongation to 204 millisecond; [place]. [id number], Complete Assessment & Plan Assessment & Plan (1) Essential hypertension: Code(s): I10 - Essential (primary) hypertension Category: Medical Plan: Remains on losartan/HCTZ. She states that she takes amlodipine if necessary. In the past she has had a fairly extensive cardiac workup in the past including echocardiogram, Holter, 30 day event monitoring, myocardial perfusion imaging which were unremarkable. (2) Obesity: Code(s): E66.9 - Obesity, unspecified Category: Medical Plan: Suggested that she sees bariatrics. Coding Level of Care Code Est Pt Level 3 (24439) Diagnoses Essential hypertension I10 Obesity E66.9 CPT Codes EKG - CPT: 56339-[id number], Complete ([id number])
[2024-01-08 11:10] VITALS: BP 120/68; PULSE 83; O2SAT 98; BMI 33.2
== END 2024-01-08 11:46 | disposition home or self-care (01) ==
PROVIDERS: PCP Family Medicine; Visit Provider Internal Medicine
DX: I10 Essential (primary) hypertension (principal); E66.9 Obesity, unspecified
CPT/HCPCS: 93010; 99213

== ENCOUNTER → 2024-01-08 11:07 | Outpatient (BNVA) | payer MEDICAID, SELFPAY | PROVIDERS: PCP Family Medicine; Visit Provider Internal Medicine | DX: I10 Essential (primary) hypertension (principal); N02.B1 Recurrent and persistent immunoglobulin A nephropathy with glomerular lesion; E66.9 Obesity, unspecified; Z68.33 Body mass index [BMI] 33.0-33.9, adult | CPT/HCPCS: 93005; 99212 ==

== ENCOUNTER 2024-05-06 04:55 | Emergency (ER) | payer MEDICAID, SELFPAY ==
--- NOTE | 2024-05-06 | ECG_ITS ---
Test Reason : SOB Blood Pressure : / mmHG Vent. Rate : 084 BPM Atrial Rate : 084 BPM P-R Int : 238 ms QRS Dur : 080 ms QT Int : 362 ms P-R-T Axes : 071 -20 015 degrees QTc Int : 427 ms Sinus rhythm with 1st degree A-V block Septal infarct (cited on or before 26-AUG-2005) Abnormal ECG When compared with ECG of 19-DEC-2022 09:41, No significant change was found Referred By: Generic ED Physician Electronically Signed By:TAMI COFFMAN
[2024-05-06 04:59] VITALS: BP 154/79; PULSE 86; RESP 18; TEMP 36.6; O2SAT 97; BMI 34.3
--- NOTE | 2024-05-06 05:21 | MHC.EDTECH ---
Patient came in from triage,changed into hospital attire,placed on the front desk monitor,EKG taken per order and signed by provider,call hood in reach
--- NOTE | 2024-05-06 05:24 | PC.NURSE ---
pt has intermediate PVC's on the monitor
[2024-05-06 05:41] LABS: MANUAL DIFF FLAG NO
[2024-05-06 05:43] LABS: Basophils Absolute Auto 0.1 X10*3/uL (0.0-0.2); Eosinophils Absolute Auto 0.2 X10*3/uL (0.0-0.4); Eosinophils Percent Auto 3.8 % (0-4); Hematocrit 35.5 % (37.0-47.0); Hemoglobin 12.3 g/dl (12.0-16.0); Imm Gran Abs Auto 0.01 X10*3/uL (0.00-0.03); Imm Gran Pct Auto 0.2 % (0.0-0.4); Lymphocytes Absolute Auto 1.4 X10*3/uL (1.2-4.9); Lymphocytes Percent Auto 24.5 % (20-40); Mean Corpuscular HGB Conc 34.6 g/dl (31.0-35.0); Mean Corpuscular Hemoglobin 30.5 pg (27.0-33.0); Mean Corpuscular Volume 88.1 fL (80.0-98.0); Mean Platelet Volume 9.3 fL (9.4-12.3); Monocytes Absolute Auto 0.5 X10*3/uL (0.1-1.2); Monocytes Percent Auto 8.9 % (2-11); Neutrophils Absolute Auto 3.5 x10*3/uL (2.0-8.3); Neutrophils Percent Auto 61.6 % (45-73); Platelet Count 213 X10*3/uL (160-400); Red Blood Count 4.03 X10*6/uL (4.20-5.50); Red Cell Distribution Width 12.7 % (11.0-16.0); White Blood Count 5.7 X10*3/uL (4.8-10.8)
--- NOTE | 2024-05-06 05:57 | ED_ITS ---
HPI - SOB/Dyspnea General Chief Complaint: Dyspnea Stated Complaint: SoB, pain shoots up right arm Time Seen by Provider: 05/06/24 05:23 Source: patient Mode of arrival: ambulatory Limitations: no limitations History of Present Illness ED Provider: Dr Sparks HPI Narrative: patient is under some stress with her youngest child and has a history of panic attack and stress Related Data Home Medications ?Medication ?Instructions ?Recorded ?Confirmed lorazepam 0.5 mg tablet (Ativan) 0.5 mg PO DAILY PRN 12/29/20 01/08/24 trazodone 100 mg tablet 100 mg PO DAILY 01/07/23 01/08/24 amlodipine 5 mg tablet 5 mg PO DAILY PRN 01/08/24 01/08/24 escitalopram oxalate 5 mg tablet 20 mg PO DAILY 01/08/24 01/08/24 losartan 100 1 tab PO DAILY 01/08/24 01/08/24 mg-hydrochlorothiazide 25 mg tablet omeprazole 20 mg capsule,delayed 20 mg PO DAILY 01/08/24 01/08/24 release Allergies Allergy/AdvReac Type Severity Reaction Status Date / Time amoxicillin [AMOXICILLIN] Allergy Unknown HIVES Verified 05/06/24 05:03 clarithromycin Allergy Unknown rash Verified 05/06/24 05:03 clindamycin [CLINDAMYCIN] Allergy Unknown RASH Verified 05/06/24 05:03 metronidazole [From FLAGYL] Allergy Unknown RASH Verified 05/06/24 05:03 Review of Systems 2 Review of Systems: Yes all other systems are reviewed and are negative Neurologic: Denies Sensory deficit (Neuro) [facility] Past Medical History Medical History Essential hypertension Hypoglycemia Hypertension Chronic renal failure Surgical History No pertinent past surgical history Family History Family History Mother HTN (hypertension) Social History Social History Alcohol intake: never Smoked in Last 30 Days: No Use of substances other than those prescribed or required for medical reasons: No Advance Directives: No Advance Directives Information Provided: No Do you have a plan to hurt others: No Plan Physical Exam 2 Vital Signs: Vital Signs: Last Vital Signs Temp 98.0 F 05/06/24 06:46 Pulse 67 05/06/24 06:46 Resp 20 05/06/24 06:46 BP 132/72 05/06/24 06:46 Pulse Ox 97 05/06/24 06:46 O2 Del Method Room Air 05/06/24 06:46 BMI result Body Mass Index 34.3 Const: Other: anxious Nutritional Appearance: average body habitus Orientation/consciousness: oriented to person and patient oriented x3 Limitations: no limitations HEENT: Head: Yes normal to inspection Ears: external ears normal General nose exam: Normal external nose present Mouth: Normal oral and palatal mucosa present and oropharynx normal Throat: Yes posterior oropharynx normal Eyes: General: appearance normal, both eyes and all related structures Neck: Other: supple Neck: Yes normal visual inspection Chest: Chest palpation & inspection: normal inspection of the chest Resp: Auscultation: clear to auscultation bilaterally Cardio: Jugular venous distension: no JVD Rate: regular rate Rhythm: r egular rhythm Heart sounds: S1 normal heart sound present and S2 normal heart sound present GI: Inspection: Yes normal to inspection Palpation (GI): Soft to palpation, nontender and No hepatosplenomegaly present Auscultation: normal bowel sounds : General: Yes no CVA tenderness Back/Spine/Pelvis: Back: no CVA tenderness Skin: General skin exam: no rashes or lesions noted Neuro: General: oriented to person and patient oriented x3 Cranial nerves: Yes CN's II-XII intact bilaterally Motor exam (neuro): 5/5 motor strength present throughout Sensory Exam: No Sensory deficit (Neuro) Extrem: General: Yes normal to inspection Psych: Appearance: grossly normal Course Reevaluation(s) Reevaluation #1: patient resting comfortably, ekg and labs normal will dc home with likely anxiety Time: 06:54 Medical Decision Making Differential Diagnosis Differential Diagnoses: The differential diagnosis associated with the presentation includes (svt, atrial fibrillation, cardiac ischemia, PVCs, anxiety panic attacks) Admission/Observation Consideration of admission/observation: Escalation of care including admission/observation considered (upon arrival patient was considered for admission) Lab Data 05/06/24 05:36 05/06/24 05:36 Labs: Lab Results 05/06/24 Range/Units 05:36 WBC 5.7 (4.8-10.8) X10*3/uL RBC 4.03 L (4.20-5.50) X10*6/uL Hgb 12.3 (12.0-16.0) g/dl Hct 35.5 L (37.0-47.0) % MCV 88.1 (80.0-98.0) fL MCH 30.5 (27.0-33.0) pg MCHC 34.6 (31.0-35.0) g/dl RDW 12.7 (11.0-16.0) % Plt Count 213 (160-400) X10*3/uL MPV 9.3 L (9.4-12.3) fL Immature Gran % (Auto) 0.2 (0.0-0.4) % Neut % (Auto) 61.6 (45-73) % Lymph % (Auto) 24.5 (20-40) % [place] % (Auto) 8.9 (2-11) % Eos % (Auto) 3.8 (0-4) % Baso % (Auto) 1.0 (0-2) % Lymph # (Auto) 1.4 (1.2-4.9) X10*3/uL [place] # (Auto) 0.5 (0.1-1.2) X10*3/uL Eos # (Auto) 0.2 (0.0-0.4) X10*3/uL Baso # (Auto) 0.1 (0.0-0.2) X10*3/uL Abs Immat Gran (auto) 0.01 (0.00-0.03) X10*3/uL Absolute Neuts (auto) 3.5 (2.0-8.3) x10*3/uL Absolute Nucleated RBC 0.000 (0.0-0.012) X10*3/uL Nucleated RBC % (auto) 0.0 (0.0-0.2) /100WBC Sodium 139 (135-145) mmol/L Potassium 3.3 (3.3-5.1) mmol/L Chloride 103 (96-108) mmol/L Carbon Dioxide 26 (22-29) mmol/L Anion Gap 13 (12-20) BUN 17 H (9-16) mg/dL Creatinine 0.86 (0.5-1.4) mg/dL Estim Creat Clear Calc 74.0 Estimated GFR > 60 Random Glucose 97 (60-115) mg/dL Calcium 9.2 D (8.4-10.2) mg/dL Troponin I High Sens < 2.7 (<3.5-17.0) ng/L TSH 2.89 (0.32-4.0) uIU/mL Independent Interpretation I performed an independent interpretation of an: EKG (sinus 110, no st or twave changes) Tests considered The following testing was considered but not selected: CXR considered but clear lungs, afebrile Prescription Management I considered prescription management with: Antibiotic (no evidence of pneumonia) Discharge Plan Discharge Clinical Impression: Heart palpitations, Anxiety Patient Disposition: Home, Self-Care Instructions: Heart Palpitations (ED), Anxiety (ED) Prescriptions: No Action lorazepam [Ativan] 0.5 mg tablet 0.5 mg PO DAILY PRN escitalopram oxalate 5 mg tablet 20 mg PO DAILY trazodone 100 mg tablet 100 mg PO DAILY omeprazole 20 mg capsule,delayed release(DR/EC) 20 mg PO DAILY losartan-hydrochlorothiazide 100-25 mg tablet 1 tab PO DAILY amlodipine 5 mg tablet 5 mg PO DAILY PRN Referrals: Ag Angel MD [Primary Care Provider] - 3 days Print Language: Citizen [place]
[2024-05-06 06:11] LABS: Anion Gap 13 (12-20); Blood Urea Nitrogen 17 mg/dL (9-16); Calcium 9.2 mg/dL (8.4-10.2); Carbon Dioxide 26 mmol/L (22-29); Chloride 103 mmol/L (96-108); Estimated Glomerular Filt Rate > 60; Glucose Random 97 mg/dL (60-115); Potassium 3.3 mmol/L (3.3-5.1); Sodium 139 mmol/L (135-145); Troponin-I High Sensitivity < 2.7 ng/L (<3.5-17.0)
[2024-05-06 06:30] LABS: TSH reflex Free T4 2.89 uIU/mL (0.32-4.0)
[2024-05-06 06:46] VITALS: BP 132/72; PULSE 67; RESP 20; TEMP 36.7; O2SAT 97
--- NOTE | 2024-05-06 06:52 | PC.NURSE ---
Report given to Mi Wise RN
[2024-05-06 07:03] VITALS: BP 121/72; PULSE 67; RESP 17; TEMP 36.6; O2SAT 100
== END 2024-05-06 07:08 | disposition home or self-care (01) ==
PROVIDERS: Emergency Provider Emergency Medicine; PCP Family Medicine
DX: R00.2 Palpitations (principal); F41.9 Anxiety disorder, unspecified; R06.02 Shortness of breath
CPT/HCPCS: 36415; 80048; 84443; 84484; 85025; 93005; 99283; 99284

== ENCOUNTER 2025-02-26 02:02 | Emergency (ER) | payer MEDICAID, SELFPAY ==
[2025-02-26 02:08] VITALS: BP 157/88; PULSE 106; RESP 18; TEMP 36.9; O2SAT 96; BMI 33.8
--- NOTE | 2025-02-26 02:20 | ECG_ITS ---
Test Reason : TACHY Blood Pressure : */* mmHG Vent. Rate : 88 BPM Atrial Rate : 88 BPM P-R Int : 220 ms QRS Dur : 84 ms QT Int : 338 ms P-R-T Axes : 64 -22 38 degrees QTcB Int : 408 ms Sinus rhythm with 1st degree A-V block Septal infarct (cited on or before 26-Aug-2005) Abnormal ECG When compared with ECG of 06-May-2024 05:11, No significant change was found Referred By: Generic ED Physician Electronically Signed By: MICH NUNO
[2025-02-26 02:41] LABS: MANUAL DIFF FLAG NO
[2025-02-26 02:43] LABS: Basophils Percent Auto 0.2 % (0-2); Eosinophils Absolute Auto 0.5 X10*3/uL (0.0-0.4); Eosinophils Percent Auto 5.2 % (0-4); Hematocrit 37.6 % (37.0-47.0); Hemoglobin 13.6 g/dl (12.0-16.0); Imm Gran Abs Auto 0.03 X10*3/uL (0.00-0.03); Imm Gran Pct Auto 0.3 % (0.0-0.4); Lymphocytes Percent Auto 21.5 % (20-40); Mean Corpuscular HGB Conc 36.2 g/dl (31.0-35.0); Mean Corpuscular Hemoglobin 30.8 pg (27.0-33.0); Mean Corpuscular Volume 85.3 fL (80.0-98.0); Mean Platelet Volume 9.8 fL (9.4-12.3); Monocytes Absolute Auto 0.5 X10*3/uL (0.1-1.2); Monocytes Percent Auto 5.9 % (2-11); Neutrophils Absolute Auto 6.1 x10*3/uL (2.0-8.3); Neutrophils Percent Auto 66.9 % (45-73); Platelet Count 241 X10*3/uL (160-400); Red Blood Count 4.41 X10*6/uL (4.20-5.50); Red Cell Distribution Width 12.8 % (11.0-16.0); White Blood Count 9.1 X10*3/uL (4.8-10.8)
[2025-02-26 03:07] LABS: Appearance Urine Clear; Color Urine Yellow; Glucose Urine UA Negative (Negative); Leukocyte Esterase Urine Negative (Negative); Nitrite Urine Negative (Negative); Specific Gravity - Urine 1.015 (1.005-1.025); UMIC TRIGGER UACC YES; Urine Blood Trace (Negative); Urine Ketones Trace mg/dL (Negative); Urine Protein 300 (3+) mg/dL (Neg-Trace)
[2025-02-26 03:10] LABS: Bacteria Urine None Seen (None Seen); Hyaline Casts Urine 0-2 /LPF (0-2); RBC Urine 0-2 /HPF (0-2); WBC Urine 0-5 /HPF (0-5)
[2025-02-26 03:12] LABS: Alanine Aminotransferase 16 U/L (0-31); Albumin Level 4.5 g/dL (3.5-5.0); Alkaline Phosphatase 82 U/L (39-117); Anion Gap 14 (12-20); Aspartate Amino Transferase 24 U/L (5-31); Bilirubin Total 0.4 mg/dL (0.0-1.0); Blood Urea Nitrogen 7 mg/dL (9-16); Calcium 9.1 mg/dL (8.4-10.2); Carbon Dioxide 24 mmol/L (22-29); Chloride 101 mmol/L (96-108); Creatinine Clr Calc Pharmacy 72.4; Estimated Glomerular Filt Rate > 60; Glucose Random 107 mg/dL (60-115); Lipase 13 U/L (8-78); Magnesium 2.1 mg/dL (1.6-2.6); Potassium 2.7 mmol/L (3.3-5.1); Sodium 136 mmol/L (135-145); Total Protein 7.1 g/dL (6.5-8.0)
--- NOTE | 2025-02-26 04:37 | ED.NAVMDI ---
HPI - Nausea/Vomiting/Diarrhea General Chief complaint: Nausea/Vomiting/Diarrhea Stated complaint: diarrhea, elevated heart rate Time Seen by Provider: 02/26/25 04:02 Source: patient Mode of arrival: ambulatory Limitations: no limitations History of Present Illness ED Provider: Dr. Julia Luz HPI Narrative: Patient comes to the emergency room complaining of 2 days of profuse diarrhea. Patient states that she is not sure if this is a side effect to her medication Zepbound (GLP-1 antagonist) which she uses for weight loss. Patient states that she has had 2 doses of 4. However, patient also states that a few hours prior to getting the 1st episode of diarrhea, patient went out with friends and ate fish. Patient denies any patient has flushing, itching, or vomiting. Patient does not have abdominal pain either. Only abdominal cramping prior to having diarrhea. Patient states that for the 1st 24 hours, patient had between 20-30 bowel movements, very watery. Patient denies fever chills, denies hematuria or dysuria. Denies any blood in the stool. Related Data Home Medications ?Medication ?Instructions ?Recorded ?Confirmed lorazepam 0.5 mg tablet (Ativan) 0.5 mg PO DAILY PRN 12/29/20 01/08/24 trazodone 100 mg tablet 100 mg PO DAILY 01/07/23 01/08/24 amlodipine 5 mg tablet 5 mg PO DAILY PRN 01/08/24 01/08/24 escitalopram oxalate 5 mg tablet 20 mg PO DAILY 01/08/24 01/08/24 losartan 100 1 tab PO DAILY 01/08/24 01/08/24 mg-hydrochlorothiazide 25 mg tablet omeprazole 20 mg capsule,delayed 20 mg PO DAILY 01/08/24 01/08/24 release Previous Rx's ?Medication ?Instructions ?Recorded diphenoxylate-atropine 2.5 1 tab PO BID PRN diarrhea #8 tabs 02/26/25 mg-0.025 mg tablet (Lomotil) prochlorperazine maleate 10 mg 10 mg PO BID PRN nausea and 02/26/25 tablet (Compazine) vomiting #14 tabs Allergies Allergy/AdvReac Type Severity Reaction Status Date / Time amoxicillin (AMOXICILLIN) Allergy Unknown HIVES Verified 02/26/25 02:12 clarithromycin Allergy Unknown rash Verified 02/26/25 02:12 clindamycin (CLINDAMYCIN) Allergy Unknown RASH Verified 02/26/25 02:12 metronidazole (From FLAGYL) Allergy Unknown RASH Verified 02/26/25 02:12 Review of Systems Review of Systems: Constitutional : No Weight loss, No Fever, No Chills, No Night Sweats, No Fatigue, No Malaise ENT/Mouth : No Hearing loss, No Ear Pain, No Nasal Congestion, No Sinus Pain, No Hoarseness, No sore throat, No Rhinorrhea, No Swallowing Difficulty Eyes: No Eye Pain, No Swelling, No Redness, No Foreign Body, No Discharge, No Vision Changes Cardiovascular : No Chest Pain, No SOB, No Dyspnea on Exertion, No Orthopnea, No Edema, No Palpitations Respiratory : No Cough, No Sputum, No Wheezing, No Smoke Exposure, No Dyspnea Gastrointestinal : No Nausea, No Vomiting, complaining of multiple episodes of watery Diarrhea, No Constipation, No abdominal Pain, No Hematochezia, No Melena Genitourinary : no irregular bleeding, No Dysuria, No Urinary Frequency, No Hematuria, No Urinary Incontinence, No Urgency, No Flank Pain, No Urinary Flow Changes, No Hesitancy Musculoskeletal : No joint pain, No Myalgias, No Joint Swelling Skin : No Skin Lesions, No rash Neuro : No Weakness, No Numbness, No Paresthesias, No Loss of Consciousness, No Dizziness, No Headache Psych : No Anxiety/Panic, No Depression, No SI/HI/AH/VH, No Social Issues, Heme/Lymph: No Bruising, No Bleeding,No Lymphadenopathy Endocrine : No Polyuria, No Polydipsia, No Temperature Intolerance [facility] Past Medical History Medical History Essential hypertension Hypoglycemia Hypertension Chronic renal failure Surgical History No pertinent past surgical history Family History Family History Mother HTN (hypertension) Social History Social History Alcohol intake: never Smoked in Last 30 Days: No Use of substances other than those prescribed or required for medical reasons: No Advance Directives: No Do you have a plan to hurt others: No Plan Patient : No Physical Exam Vital Signs: Vital Signs: Last Vital Signs Temp 97.1 F 02/26/25 05:53 Pulse 74 02/26/25 05:53 Resp 20 02/26/25 05:53 BP 135/79 02/26/25 05:53 Pulse Ox 96 02/26/25 05:53 O2 Del Method Room Air 02/26/25 05:53 BMI result Body Mass Index 33.8 Const: Other: Appearance: Alert. Oriented X3. No acute distress. Eyes: Pupils equal, round and reactive to light. ENT: Pharynx normal. Mucous membranes are moist Neck: Normal inspection. Neck supple. No lymph nodes noted. No crepitus CVS: Normal heart rate and rhythm. Pulses normal. Normal S1 and S2 Respiratory: No respiratory distress. Breath sounds normal. No Wheezing. No rales Abdomen: Soft and nontender. No rigidity. No distention. No rebound or guarding Skin: Skin warm and dry. Normal skin color. Normal skin turgor. Extremities: No lower extremity edema. No Lacerations. No Rash Neuro: Oriented X 3. No motor deficit. No sensory deficit. Moving all extremities. No slurred speech. CN 2 through 12 grossly intact Psych: calm, cooperative, normal affect Course Course Course Narrative: Patient comes to the emergency room complaining of 2 days of diffuse watery diarrhea. Denies any use of antibiotics. Patient states that the 1st day she used 16 mg of loperamide without any significant relief. All of patient's labs and imaging pending. Medications Administered Discontinued Medications Generic Name Dose Route Start Last Admin Trade Name Freq PRN Reason Stop Dose Admin Diphenoxylate HCl/Atropine 1 tab 02/26/25 04:27 02/26/25 05:34 Diphenoxylate/Atrop 2.5/0.025 Tablet PO 02/26/25 04:28 1 tab ONCE ONE Administration Lactated Ringer's 1,000 mls @ 999 mls/hr 02/26/25 04:30 02/26/25 05:34 Lr IV 02/26/25 05:30 999 mls/hr .Q1H1M MILLY Administration Potassium Chloride 80 meq 02/26/25 04:27 02/26/25 05:33 Potassium Chloride Packet 20 Meq Packet PO 02/26/25 04:28 80 meq ONCE ONE Administration Medical Decision Making Medical Decision Making MDM Narrative: My interpretation of labs: Patient's white blood cell count 9.1, no significant hematology abnormality, chemistry shows a potassium of 2.7, otherwise no significant abnormality in patient's chemistry, LFTs, normal magnesium, normal lipase. Urinalysis negative for UTI I considered doing imaging. However, patient has diarrhea this time, patient has no abdominal pain at all. Patient states she only has cramping when she needs to go use the restroom. Otherwise no abdominal pain or rectal bleeding. Patient is still has been sent for a GI stool panel steady and C diff Patient received IV fluids, p.o. potassium and Lomotil p.o. Seems that the diarrhea is slowing down. Distal sample that was sent for serology test was and who is solid. Patient states that she was feeling a bit nauseous after adjusting the potassium. Otherwise, no vomiting, no longer having diarrhea. Differential Diagnosis Differential Diagnoses: The differential diagnosis associated with the presentation includes (Gastritis, viral gastroenteritis, bacterial gastroenteritis) Admission/Observation Consideration of admission/observation: Escalation of care including admission/observation considered (Given patient's labs, amount of diarrhea, observation was considered) Lab Data [facility] Lab Attestation statement: I reviewed the patient's lab results. 02/26/25 02:33 02/26/25 02:33 Labs: Lab Results 02/26/25 02/26/25 Range/Units 02:33 03:00 WBC 9.1 (4.8-10.8) X10*3/uL RBC 4.41 (4.20-5.50) X10*6/uL Hgb 13.6 (12.0-16.0) g/dl Hct 37.6 (37.0-47.0) % MCV 85.3 (80.0-98.0) fL MCH 30.8 (27.0-33.0) pg MCHC 36.2 H (31.0-35.0) g/dl RDW 12.8 (11.0-16.0) % Plt Count 241 (160-400) X10*3/uL MPV 9.8 (9.4-12.3) fL Immature Gran % (Auto) 0.3 (0.0-0.4) % Neut % (Auto) 66.9 (45-73) % Lymph % (Auto) 21.5 (20-40) % Sabine % (Auto) 5.9 (2-11) % Eos % (Auto) 5.2 H (0-4) % Baso % (Auto) 0.2 (0-2) % Lymph # (Auto) 2.0 (1.2-4.9) X10*3/uL Sabine # (Auto) 0.5 (0.1-1.2) X10*3/uL Eos # (Auto) 0.5 H (0.0-0.4) X10*3/uL Baso # (Auto) 0.0 (0.0-0.2) X10*3/uL Abs Immat Gran (auto) 0.03 (0.00-0.03) X10*3/uL Absolute Neuts (auto) 6.1 (2.0-8.3) x10*3/uL Absolute Nucleated RBC 0.000 (0.0-0.012) X10*3/uL Nucleated RBC % (auto) 0.0 (0.0-0.2) /100WBC Sodium 136 (135-145) mmol/L Potassium 2.7 L* (3.3-5.1) mmol/L Chloride 101 (96-108) mmol/L Carbon Dioxide 24 (22-29) mmol/L Anion Gap 14 (12-20) BUN 7 L (9-16) mg/dL Creatinine 0.84 (0.5-1.4) mg/dL Estim Creat Clear Calc 72.4 Estimated GFR > 60 Random Glucose 107 (60-115) mg/dL Calcium 9.1 (8.4-10.2) mg/dL Magnesium 2.1 (1.6-2.6) mg/dL Total Bilirubin 0.4 (0.0-1.0) mg/dL AST 24 (5-31) U/L ALT 16 (0-31) U/L Alkaline Phosphatase 82 (39-117) U/L Total Protein 7.1 (6.5-8.0) g/dL Albumin 4.5 (3.5-5.0) g/dL Lipase 13 (8-78) U/L Urine Color Yellow Urine Appearance Clear Urine pH 6.0 (5.0-9.0) Ur Specific [place] 1.015 (1.005-1.025) Urine Protein 300 (3+) H (Neg-Trace) mg/dL Urine Glucose (UA) Negative (Negative) mg/dL Urine Ketones Trace (Negative) mg/dL Urine Blood Trace H (Negative) Urine Nitrite Negative (Negative) Ur Leukocyte Esterase Negative (Negative) Urine RBC 0-2 (0-2) /HPF Urine WBC 0-5 (0-5) /HPF Ur Squamous Epith Cells 6-10 (0-2) /HPF Urine Bacteria None Seen (None Seen) Hyaline Casts 0-2 (0-2) /LPF Critical Care Time Critical Care Time Critical Care Time: Yes Total Critical Care Time: 45 Attestation: I have personally provided critical care time. Time includes review of lab data, radiology results, discussion with consultants, and monitoring for potential decompensation. Intervention performed as documented. Discharge Plan Discharge Clinical Impression: Diarrhea, Acute hypokalemia Patient Disposition: Home, Self-Care Instructions: Hypokalemia (ED), Acute Diarrhea (ED) Additional Instructions: Please follow-up with your primary care physician tomorrow. If you have any worsening or new symptoms, please return to the emergency room or call 911 Prescriptions: New diphenoxylate-atropine [Lomotil] 2.5-0.025 mg tablet 1 tab PO BID PRN (Reason: diarrhea) Qty: 8 0RF prochlorperazine maleate [Compazine] 10 mg tablet 10 mg PO BID PRN (Reason: nausea and vomiting) Qty: 14 0RF No Action lorazepam [Ativan] 0.5 mg tablet 0.5 mg PO DAILY PRN escitalopram oxalate 5 mg tablet 20 mg PO DAILY trazodone 100 mg tablet 100 mg PO DAILY omeprazole 20 mg capsule,delayed release(DR/EC) 20 mg PO DAILY losartan-hydrochlorothiazide 100-25 mg tablet 1 tab PO DAILY amlodipine 5 mg tablet 5 mg PO DAILY PRN Print Language: Panamanian
[2025-02-26] MEDS: Potassium Chloride Packet 20 MEQ PACKET 80 MEQ PO (05:33)
[2025-02-26] MEDS: Lactated Ringers 1,000 ML 999 ML IV (05:34)
[2025-02-26] MEDS: Diphenoxylate/Atrop 2.5/0.025 TABLET 1 TAB PO (05:34)
[2025-02-26 05:53] VITALS: BP 135/79; PULSE 74; RESP 20; TEMP 36.2; O2SAT 96
[2025-02-26] MEDS: Prochlorperazine Edisylate 10 MG/2 ML VIAL 5 MG IVPUSH (06:30)
[2025-02-26 07:55] LABS: Leukocytes Stool Qualitative NEGATIVE (NEGATIVE)
[2025-02-26 10:23] VITALS: BP 120/67; PULSE 63; RESP 15; TEMP 36.4; O2SAT 95
[2025-02-26 10:26] LABS: CDiff Gene PCR NEGATIVE (Negative)
[2025-02-26 10:36] LABS: Adenovirus F 40/41 Not Detected (Not Detect.); Astrovirus Not Detected (Not Detect.); Campylobacter Not Detected (Not Detect.); Cryptosporidium Not Detected (Not Detect.); Cyclospora cayetanensis Not Detected (Not Detect.); E. coli EAEC Not Detected (Not Detect.); E. coli EPEC Not Detected (Not Detect.); E. coli ETEC Not Detected (Not Detect.); E. coli STEC Not Detected (Not Detect.); Entamoeba histolytica Not Detected (Not Detect.); Giardia lamblia Not Detected (Not Detect.); Norovirus GI/GII Not Detected (Not Detect.); Plesiomonas shigelloides Not Detected (Not Detect.); Rotavirus A Not Detected (Not Detect.); Salmonella Not Detected (Not Detect.); Sapovirus Not Detected (Not Detect.); Shigella sp./EIEC Not Detected (Not Detect.); Vibrio Not Detected (Not Detect.); Vibrio Cholerae Not Detected (Not Detect.); Yersinia enterocolitica Not Detected (Not Detect.)
== END 2025-02-26 10:37 | disposition home or self-care (01) ==
PROVIDERS: Emergency Medicine; Emergency Provider Emergency Medicine; PCP Family Medicine
DX: R19.7 Diarrhea, unspecified (principal); E87.6 Hypokalemia; R11.2 Nausea with vomiting, unspecified
CPT/HCPCS: 36415; 80053; 81001; 83690; 83735; 85025; 87329; 87493; 87507; 89055; 93005; 96361; 96374; 99284; 99285; 99291; J0737; J7120

== ENCOUNTER → 2025-02-26 02:20 | Outpatient (BNV) | payer MEDICAID, SELFPAY | PROVIDERS: Emergency Provider Emergency Medicine; PCP Family Medicine; Visit Provider Internal Medicine | DX: I44.0 Atrioventricular block, first degree (principal); I25.2 Old myocardial infarction | CPT/HCPCS: 93010 ==

== ENCOUNTER 2025-06-15 15:38 | Outpatient (REF) | payer MEDICARE, MEDICAID, SELFPAY ==
--- OUTSIDE RECORDS SUMMARY | 2024-01-03 04:10 | XMS_ITS ---
Author Organization [facility] Address [address] [place] [address] Care Team Providers Care Commercial Attache Name Role Phone Stanley VILLEDA, Ag Primary Care Provider Elia Lewis Jr [phone] REASON FOR VISIT diverticulitis Encounters Encounter Location Date Provider [place] [facility] [address] [place] [id number] 01/03/2024 Elia Herr Jr Plan Of Treatment No Information Progress Notes * TERESITA LEO EDOB:1965 (60 yo F)Acc No.[id number]:01/03/2024 COLON WITH MAC Patient: TERESITA COLVIN Provider: Iglesia Herr MD :1965 A ge:58 Y S ex:Female Date:01/03/2024 [id number] Pcp:Ag Angel MD Subjective: * Chief Complaints: * 1 . Diverticulitis. * Medical History: Objective: * Vitals: Assessment: Plan: * Treatment: * * The named appointment provid er may or may not be the originator of this progress note, and it is not deemed complete until electronically signed by the appointment provider. Sign off status: Pending * Provider: Iglesia Herr MD Date: 0 01/03/2024 Generated for Printi ng/Faxing/eTransmitting on: 06:20 PM EDT
--- OUTSIDE RECORDS SUMMARY | 2025-06-15 18:20 | XMS_ITS | Encounter Summary ---
Author Organization [facility] Address [address] [place] [address] [place] [phone] Phone Care Team Providers Care Plate Conditioner Name Role Phone Rhianna Castanon RN Unavailable Ag Angel MD Primary Care Provider [phone] Ag Angel MD Unavailable [phone] Elana Mendosa Unavailable [phone] Rhianna Castanon RN Unavailable Chana Madden [facility] Unavailable max Mari Adan Unavailable anitha Ag Angel MD Primary Care Provider [phone] Encounter Details Date Type Department Care Team (Late st Contact Info) Description 02/21/2021 Procedure Pass [facility] MR Imaging, Mu[facility] [address] [place] [address] Social History Tobacco Use Types Packs/Day Years Used Date Smoking Tobacco: Never Smokeless Tobacco: Never Alcohol Use Standard Drinks/Week Comments Yes 1 (1 standard drink = 0.6 oz pur e alcohol) Comments No Sex and Gender Information Value Date Recorded Sex Assigned at Female 01/18/2021 4:13 PM EDT Legal Sex Female 5:10 PM EST Gender Identity Female 01/18/2021 4:13 PM EDT Sexual Orientation Choose not to disclose 2020 10:19 PM EDT documented as of this encounter Plan of Treatment Not on file documented as of this encounter Visit Diagnoses Not on filedocumented in this encounter Additional Health Concerns Assessment Noted Time PHQ-2 Depression Total Score: 2 10/24/19 11:11 AM EST documented as of this encounter Care Teams Plate Conditioner Relationship Specialty Start Date End Date Ag Angel MD [address] [place] [phone] [email or web address] PCP - General Family Medicine 12/07/20 05/26/25 Ag Angel MD [address] [place] [phone] [email or web address] PCP - General Family Medicine 05/27/25 Rhianna Castanon RN [address] [place] [phone] PH[employer] Company Marker 09/16/20 03/27/22 Ag Angel MD [address] [place] [phone] [email or web address] Insurance Assigned Provider 02/05/21 05/11/23 Elana Mendosa [address] [place] [address] [email or web address] PHCM Community Health Worker 03/02/21 06/19/21 Rhianna Castanon RN [address] [place] [phone] [employer] Company Marker 09/16/20 05/25/25 Chana Madden LCSW [address] [place] [phone] PHCM General Manager Food 03/29/23 04/08/23 Mari Adan [address] [place] [phone] [email or web address] PHCM Community Pc Installation Engineer 10/08/24 10/12/24 documented as of this encounter Additional Source Comments The information contained in this document represents components of the legal health record. It is not the complete legal health record.[facility]
--- OUTSIDE RECORDS SUMMARY | 2025-06-15 18:20 | XMS_ITS | Encounter Summary ---
Author Organization [facility] Address [address] [place] [address] [place] [address] Phone Care Team Providers Care Freelance Designer Name Role Phone Rhianna Castanon RN Unavailable Ag Angel MD Primary Care Provider [phone] Ag Angel MD Unavailable [phone] Elana Mendosa Unavailable [phone] Rhianna Castanon RN Unavailable Chana Madden [facility] Unavailable max Mari Adan Unavailable anitha Ag Angel MD Primary Care Provider [phone] Encounter Details Date Type Department Care Team (Late st Contact Info) Description 02/21/2021 Procedure Pass [facility] MR Imaging, [place] [place] [address] Social History Tobacco Use Types Packs/Day Years [...] documented as of this encounter Care Teams Freelance Designer Relationship Specialty Start Date End Date Ag Angel MD [address] [place] [phone] [email or web address] PCP - General Family Medicine 12/07/20 05/26/25 Ag Angel MD [address] [place] [phone] [email or web address] PCP - General Family Medicine 05/27/25 Rhianna Castanon RN [address] [place] [address] PHCM International Nurse 09/16/20 03/27/22 Ag Angel MD [address] [place] [phone] [email or web address] Insurance Assigned Provider 02/05/21 05/11/23 Elana Mendosa [address] [place] [address] [email or web address] PHCM Community Health Worker 03/02/21 06/19/21 Rhianna Castanon RN [address] [place] [address] PHCM International Nurse 09/16/20 05/25/25 Chana Madden LCSW [address] [place] [phone] PHCM Electrical Contacts Adjuster 03/29/23 04/08/23 Mari Adan [address] [place] [phone] [email or web address] PHCM Community Toll Collector Supervisor 10/08/24 10/12/24 documented as of this encounter Additional Source Comments The information contained in this document represents components of the legal health record. It is not the complete legal health record.[facility]
--- OUTSIDE RECORDS SUMMARY | 2025-06-15 18:20 | XMS_ITS | Encounter Summary ---
Author Organization [facility] Address [address] [place] [phone] Phone Care Team Providers Care Centrifugal Casting Machine Operator Name Role Phone Rhianna Castanon RN Unavailable Lisa Guillory Primary Care Provider [phone] Lisa Lou MD Unavailable [phone] Ag Angel MD Primary Care Provider [phone] Ag Angel MD Unavailable [phone] Elana Mendosa Unavailable [phone] Rhianna Castanon RN Unavailable Chana Madden [facility] Unavailable max Mari Adan Unavailable anitha Ag Angel MD Primary Care Provider [phone] Encounter Details Date Type Department Care Team (Late st Contact Info) Description 11/30/2020 Transcribe Orders Virtual Department [address] [place] [address] Ag Angel MD [address] [place] [address] [phone] [email or web address] Dyspnea, unspecified type (Primary Dx) Social History Tobacco Use Types Packs/Day Years [...] on file documented as of this encounter Results * Pulmonary Function Test Reason for Exam: Dyspnea/Shortness of Breath; Type of PFT Test: Lung Volumes, DLCO, Spirometry with bronchodilator; Performing Location: [facility] (12/07/2020 9:24 AM EDT) FEV1 2.92 liters FVC 3.82 liters FEV1/FVC 76 % TLC 5.40 liters DLCO 21.7 ml/mmHg sec Anatomical Region Laterality Modality Other Impressions 12/07/2020 9:24 AM EDT PULMONARY FUNCTION STUDIES Full pulmonary function studies were performed on this 55 y.o. year-old female for evaluation of dyspnea. Review of the medical record reveals that the patient is a never smoker. Prior pulmonary function studies are not available for comparison. SPIROMETRY: The FEV1 is normal at 2.92 L or 131% predicted. The FVC is normal at 3.82 L or 128% predicted. The FEV1/FVC ratio is normal at 76%. After the administration of a bronchodilator agent, there is no significant change. Mid flows and peak flows are normal. FLOW-VOLUME LOOPS: Evaluation of the flow-volume loops reveals normal morphology of both the inspiratory and expiratory limbs with no significant difference when comparing the tracings performed pre- and post-bronchodilator. LUNG VOLUME MEASUREMENTS BY NITROGEN WASHOUT: The total lung capacity is normal at 5.40 L or 118% predicted. The functional residual capacity is normal at 2.67 L or 113% predicted. DIFFUSION CAPACITY: The diffusion capacity is normal at 21.6 mL/mmHg sec or 100% predicted. Resting oxygen saturation is 97% on room air. IMPRESSION: This represents normal pulmonary function studies. us Ag Angel MD PFT ORDERABLES Final Resul t documented in this encounter Visit Diagnoses Diagnosis Dyspnea, unspecified type- Primary Dyspnea, unspecified type documented in this encounter Additional Health Concerns Assessment Noted Time PHQ-2 Depression Total Score: 2 10/24/19 11:11 AM EST documented as of this encounter Care Teams Centrifugal Casting Machine Operator Relationship Specialty Start Date End Date Lisa Guillory PA [address] [place] [address] PCP - General 09/16/20 12/06/20 Ag Angel MD [address] [place] [phone] [email or web address] PCP - General Family Medicine 12/07/20 05/26/25 Ag Angel MD [address] [place] [phone] [email or web address] PCP - General Family Medicine 05/27/25 Rhianna Castanon RN [address] [place] [address] [email or web address] PHCM Liquefied Natural Gas Operator 09/16/20 03/27/22 Lisa Lou MD [address] [place] [address] [phone] Insurance Assigned Provider 10/08/20 02/05/21 Ag Angel MD [address] [place] [phone] [email or web address] Insurance Assigned Provider 02/05/21 05/11/23 Elana Mendosa [address] [place] [phone] [email or web address] [email or web address] Community Health Worker 03/02/21 06/19/21 Rhianna Castanon RN [address] [place] [address] [email or web address] PHCM Liquefied Natural Gas Operator 09/16/20 05/25/25 Chana Madden LCSW [address] [place] [phone] [email or web address] [facility] Director Of Digital Technology 03/29/23 04/08/23 Mari Adan [address] [place] [address] [email or web address] [facility] Community Elderly Caregiver 10/08/24 10/12/24 documented as of this encounter Additional Source Comments The information contained in this document represents components of the legal health record. It is not the complete legal health record.[facility]
--- OUTSIDE RECORDS SUMMARY | 2025-06-15 18:20 | XMS_ITS | Encounter Summary ---
Author Organization [facility] Address [address] [place] [phone] Phone Care Team Providers Care Cad Designer Drafter Name Role Phone Rafaela Mendiola MD Primary Care Provid er Ag Angel MD Unavailable [phone] Rhianan Castanon RN Unavailable Lisa Guillory Primary Care Provider Lisa Lou MD Unavailable Ag Angel MD Primary Care Provider [phone] Ag Angel MD Unavailable Elana Mendosa Unavailable [phone] Rhianna Castanon RN Unavailable Chana MaddenW Unavailable max Mari Adan Unavailable anitha Ag Angel MD Primary Care Provider [phone] Encounter Details Date Type Department Care Team (Late st Contact Info) Description 03/24/2020 Transcribe Orders [facility] PFT Lab [address] [place], [place] [phone] Winnie Thompson, PIETER [address] [place] [address] Social History Tobacco Use Types Packs/Day Years [...] Diagnoses Not on filedocumented in this encounter Care Teams Cad Designer Drafter Relationship Specialty Start Date End Date Rafaela Mendiola MD [address] [place] [phone] PCP - General 06/18/17 09/15/20 Lisa Guillory PA [address] [place] [phone] PCP - General 09/16/20 12/06/20 Ag Angel MD [address] [place] [phone] [email or web address] PCP - General Family Medicine 12/07/20 05/26/25 Ag Angel MD [address] [place] [phone] PCP - General Family Medicine 05/27/25 Ag Angel MD [address] [place] [address] [phone] Insurance Assigned Provider 10/02/19 10/08/20 Rhianna Castanon RN [address] [place] [phone] PHCM Service Desk Associate 09/16/20 03/27/22 Lisa Lou MD [address] [place] [address] [phone] Insurance Assigned Provider 10/08/20 02/05/21 Ag Angel MD [address] [place] [address] [phone] Insurance Assigned Provider 02/05/21 05/11/23 Elana Mendosa [address] [place] [address] [email or web address] Community Health Worker 03/02/21 06/19/21 Rhianna Castanon RN [address] [place] [phone] PHCM Service Desk Associate 09/16/20 05/25/25 Chana Madden LCSW [address] [place] [phone] PHCM Railroad Brake Repairer 03/29/23 04/08/23 Mari Adan [address] [place] [phone] [email or web address] [facility] Community Muck Operator 10/08/24 10/12/24 documented as of this encounter Additional Source Comments The information contained in this document represents components of the legal health record. It is not the complete legal health record.[facility]
--- OUTSIDE RECORDS SUMMARY | 2025-06-15 18:20 | XMS_ITS | Patient Health Record ---
Author Organization [facility] Address [address] [place] [address] Care Team Providers Care Sewing Teacher Name Role Phone Ag Angel MD Primary Care Provider Elia Lewis Jr Unavailable [phone] Allergies Allergen (clinical drug ingredient) Drug/Non Drug Allergy documented on EMR Reaction Allergy Type Onset Date Status amoxicillin Amoxicillin Unknown Drug Allergy Act walter Reason For Referral No Information Medications Medication SIG (Take, Route, Frequency, Duration) Notes Start Date End Date Status Omeprazole 20 MG TAKE 1 CAPSULE BY [facility] EVERY DAY 30 MINUTES BEFORE MORNING MEAL; Duration: 90 Active MiraLax (colon prep) 17 GM/SCOOP mixed with Gatorade or Crystal Light Orally begin at 5:00 p.m. the day before the procedure; Duration: 1 day 10/28/2023 Active Progesterone 100 MG Oral; Duration: 30 Active LORazepam 0.5 MG TAKE 0.5-1 TABLET BY MOUTH DAILY NEEDED FOR ANXIETY Oral; Duration: 8 Active Losartan Potassium-HCTZ 100-25 MG Oral; Duration: 90 Active traZODone HCl 50 MG Oral; Duration: 90 Active Escitalopram Oxalate 20 MG Oral; Duration: 90 Active Multivitamin Active Ibuprofen 400 MG Orally PRN Act walter Tylenol 325 MG 1 tablet as needed O rally every 4 hrs/prn PRN Active Immunizations Vaccine Route Administration Date Status Comme nts Influenza Unknown 07/16/2018 Administered Influenza Unknown 11/03/2020 Refused Influenza Unknown 10/28/2023 Refused Social History Tobacco Use: Social History Observation Description Date Details (start date - stop date) Never Smoker NA - NA Tobacco Use/Smoking Question Answer Notes Patient is a nonsmoker Alcohol Screen Question Answer Notes Did you have a drink contain ing alcohol in the past year? Yes How often did you have a dri nk containing alcohol in the past year? Monthly or less (1 point) How many drinks did you have on a typical day when you were drinking in the past year? 1 or 2 drinks (0 point) How often did you have 6 or more drinks on one occasion in the past year? Never (0 point) Points 1 Interpretation Negative Problems Problem Type SNOMED Code ICD Code Onset Dates Problem Status W/U Status Risk Notes Problem Colon cancer screening (607647269) Colon cancer screening (Z12.11) Active confirmed Problem Change in bowel habit (81841158) Change in bowel habits (R19.4) Active confirmed Problem Right upper quadrant pain (162906979) Right upper quadrant pain (R10.11) Active confirmed Problem Diverticulitis (11661720) Diverticulitis (K57.92) Active confirmed Problem Gastroesophageal reflux disease without esophagitis (496547946) Gastroesophageal reflux disease without esophagitis (K21.9) Active confirmed Problem Irritable bowel syndrome (66169425) Irritable bowel syndrome with both constipation and diarrhea (K58.2) Active confirmed Problem Right upper quadrant pain (592126637) RUQ pain (R10.11) Active confirmed Problem Nausea and vomiting (51347947) Nausea and vomiting, intractability of vomiting not specified, unspecified vomiting type (R11.2) Active confirmed Problem Right sided abdominal pain (517950056) Right sided abdominal pain (R10.9) Active confirmed Plan Of Treatment Pending Test Test Name Order Date BUN 07/29/2018 CREATININE 07/29/2018 H PYLORI AG, STOOL 05/26/2019 PANCREATIC ELASTASE 11/03/2020 FECAL FAT QUAL 11/03/2020 CT ABD & PELVIS WITH CONTRAST 07/23/2018 CT ABD & PELVIS WITH CONTRAST 11/03/2020 C DIFFICILE RFLX PCR 05/20/2019 Future Test Test Name Order Date COLONOSCOPY 12/04/2017 UPPER GI ENDOSCOPY 07/23/2018 COLONOSCOPY 07/23/2018 UPPER GI ENDOSCOPY 04/01/2019 COLONOSCOPY 04/01/2019 COLONOSCOPY 10/28/2023 Insurance Providers Payer Name Payer Address Payer Phone Subscriber Number Group Number Insured Name Patient Relationship to Insured Coverage Start Date Coverage End Date [employer] [address] [place] [phone] [id number] TERESITA LEO Self - patient is the insured MEDICAID OF [facility] [address] [place] [phone] [id number] FAIZAN LEORA Self - patient is the insured Medical (General) History Medical History History ICD Code IgA nephropathy/proteinuria, CKD2 insomnia hypertension Gastroesophageal reflux dise ase, EGD 05/21 no Salcedo's esophagus, H. 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
--- OUTSIDE RECORDS SUMMARY | 2025-06-15 18:20 | XMS_ITS | Encounter Summary ---
Author Organization [facility] Address [address] [place] [address] [place] [phone] Phone Care Team Providers Care Quill Collector Name Role Phone Rhianna Castanon RN Unavailable Ag Angel MD Primary Care Provider [phone] Ag Angel MD Unavailable [phone] Elana Mendosa Unavailable [phone] Rhianna Castanon RN Unavailable Chana Madden [facility] Unavailable max Mari Adan Unavailable anitha Ag Angel MD Primary Care Provider [phone] Encounter Details Date Type Department Care Team (Late st Contact Info) Description 02/21/2021 Procedure Pass [facility] MR Imaging, [place] [address] [place] [address] Social History Tobacco Use Types Packs/Day Years [...] documented as of this encounter Care Teams Quill Collector Relationship Specialty Start Date End Date Ag Angel MD [address] [place] [phone] [email or web address] PCP - General Family Medicine 12/07/20 05/26/25 Ag Angel MD [address] [place] [phone] [email or web address] PCP - General Family Medicine 05/27/25 Rhianna Castanon RN [address] [place] [address] PHCM Bee Breeder 09/16/20 03/27/22 Ag Angel MD [address] [place] [address] [email or web address] Insurance Assigned Provider 02/05/21 05/11/23 Elana Mendosa [address] [place] [address] [email or web address] PHCM Community Health Worker 03/02/21 06/19/21 Rhianna Castanon RN [address] [place] [address] PHCM Bee Breeder 09/16/20 05/25/25 Chana Madden LCSW [address] [place] [address] PHCM [employer] Certified Network Associate 03/29/23 04/08/23 Mari Adan [address] [place] [phone] [email or web address] PHCM Community Master Barber 10/08/24 10/12/24 documented as of this encounter Additional Source Comments The information contained in this document represents components of the legal health record. It is not the complete legal health record.[facility]
--- OUTSIDE RECORDS SUMMARY | 2025-06-15 18:20 | XMS_ITS | Encounter Summary ---
Author Organization [facility] Address [address] [place] [address] [place] [address] Phone Care Team Providers Care Dance Coach Name Role Phone Rhianna Castanon RN Unavailable Ag Angel MD Primary Care Provider [phone] Ag Angel MD Unavailable [phone] Rhianna Castanon RN Unavailable Chana Madden [facility] Unavailable max Mari Adan Unavailable anitha Ag Angel MD Primary Care Provider [phone] Encounter Details Date Type Department Care Team (Latest Contact Info) Description 11/20/2021 Transcribe Orders Virtual Department [address] [place] [address] Lisa Duvall MD [address] [place] [address] [address] [place] [address] [email or web address] 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 Narrative 01/27/2022 1:12 PM EDT US SOFT TISSUES OF HEAD AND NECK (LYMPH NODE SURVEY) TECHNIQUE: Ultrasound soft tissue of the left parotid gland COMPARISON: US SOFT TISSUES OF HEAD AND NECK (NON-THYROID) ; MRI NECK WITH AND WITHOUT CONTRAST FINDINGS: Targeted ultrasound of the left parotid gland demonstrates multiple reniform shaped nodes with central echogenicity likely reflecting intraparotid lymph nodes with largest measuring 0.5 cm in short axis. No suspicious soft tissue mass. No fluid collection. Images of the right parotid obtained for comparison demonstrate no sonographic abnormality. Procedure Note Eh Balderas MD - 01/27/2022 US SOFT TISSUES OF HEAD AND NECK (LYMPH NODE SURVEY) TECHNIQUE: Ultrasound soft tissue of the left parotid gland COMPARISON: US SOFT TISSUES OF HEAD AND NECK (NON-THYROID) ;MRI NECK WITH AND WITHOUT CONTRAST FINDINGS: Targeted ultrasound of the left parotid gland demonstrates multiplereniform shaped nodes with central echogenicity likely reflectingintraparotid lymph nodes with largest measuring 0.5 cm in short axis. Nosuspicious soft tissue mass. No fluid collection. Images of the right parotid obtained for comparison demonstrate nosonographic abnormality. IMPRESSION: Bilateral subcentimeter nodules in the parotid glands likely reflectingintraparotid lymph nodes, unchanged from comparison. 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 documented in this encounter Additional Health Concerns Assessment Noted Time PHQ-2 Depression Total Score: 2 10/24/19 21 11:11 AM EST documented as of this encounter Care Teams Dance Coach Relationship Specialty Start Date End Date Ag Angel MD [address] [place] [address] [email or web address] PCP - General Family Medicine 12/07/20 05/26/25 Ag Angel MD [address] [place] [phone] PCP - General Family Medicine 05/27/25 Rhianna Castanon RN [address] [place] [phone] PHCM Wheat Farmer 09/16/20 03/27/22 Ag Angel MD [address] [place] [phone] Insurance Assigned Provider 02/05/21 05/11/23 Rhianna Castanon, RN [address] [place] [address] PHCM Wheat Farmer 09/16/20 05/25/25 Chana Madden LCSW [address] [place] [phone] PHCM Solar Sales Energy Advisor 03/29/23 04/08/23 Mari Adan [address] [place] [phone] [email or web address] PHCM Community Erp Implementation Consultant 10/08/24 10/12/24 documented as of this encounter Additional Source Comments The information contained in this document represents components of the legal health record. It is not the complete legal health record.[facility]
--- OUTSIDE RECORDS SUMMARY | 2025-06-15 18:20 | XMS_ITS | Encounter Summary ---
Author Organization [facility] Address [address] [place] [address] [place] [phone] Phone Care Team Providers Care Barrel Centerer Name Role Phone Rhianna Castanon RN Unavailable Ag Angel MD Primary Care Provider Ag Angel MD Unavailable [phone] Rhianna Castanon RN Unavailable Chana Madden GLUELINE WORKER Unavailable max Mari Adan Unavailable anitha Ag Angel MD Primary Care Provider [phone] Encounter Details Date Type Department Care Team (Late st Contact Info) Description 11/20/2021 Transcribe Orders Virtual Department [address] [place] [address] Ag Angel MD [address] [place] [address] [phone] [email or web address] 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) Social History Tobacco Use Types [...] documented as of this encounter Visit Diagnoses Diagnosis Neoplasm of uncertain behavior of parotid gland- Primary 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 documented in this encounter Additional Health Concerns Assessment Noted Time PHQ-2 Depression Total Score: 2 10/24/19 11:11 AM EST documented as of this encounter Care Teams Barrel Centerer Relationship Specialty Start Date End Date Ag Angel MD [address] [place] [phone] [email or web address] PCP - General Family Medicine 12/07/20 05/26/25 Ag Angel MD [address] [place] [phone] [email or web address] PCP - General Family Medicine 05/27/25 Rhianna Castanon RN [address] [place] [phone] [email or web address] PHC Sociology Professor 09/16/20 03/27/22 Ag Angel MD [address] [place] [phone] [email or web address] Insurance Assigned Provider 02/05/21 05/11/23 Rhianna Castanon RN [address] [place] [phone] [email or web address] PHC Sociology Professor 09/16/20 05/25/25 Chana Madden LCSW [address] [place] [phone] [email or web address] [facility] Press Operator Automatic 03/29/23 04/08/23 Mari Adan [address] [place] [phone] [email or web address] PHCM Community Wind Up Worker 10/08/24 10/12/24 documented as of this encounter Additional Source Comments The information contained in this document represents components of the legal health record. It is not the complete legal health record.[facility]
--- OUTSIDE RECORDS SUMMARY | 2025-06-15 18:20 | XMS_ITS | Clinical Summary ---
Author Organization [facility] Address [address] [place] [address] [place] [address] Phone Care Team Providers Care Nuclear Power Plant Engineer Name Role Phone Ag Angel MD Primary Care Provider [phone] Allergies Active Allergy Reactions Criticality Noted Date Comments Amoxicillin Hives Medium 12/10/2018 Medications escitalopram oxalate (LEXAPRO) 10 MG tablet Take 10 mg by mouth daily. 01/14/20 21 Active traZODone (DESYREL) 50 MG tablet TAKE 1 TABLET BY MOUTH EVERY DAY AT BEDTIME FOR 30 DAYS 02/22/20 21 Active omeprazole (PRILOSEC) 20 MG capsule TAKE 1 CAPSULE BY MOUTH EVERY DAY 30 MINUTES BEFORE MORNING MEAL FOR 30 DAYS 04/17/20 22 Active estradioL (ESTRACE) 0.01 % (0.1 mg/gram) vaginal creamIndications :Urinary frequency,Urinar y urgency,Mixed incontinence Place 0.5 g vaginally 2 (two) times a week. 42.5 g 1 05/10/20 22 Active Additional Information Patient not taking.Reported on 09/20/2023 ciclopirox (PENLAC) 8 % solution Apply 1 Application topically nightly at bedtime. Apply over nail and surrounding skin. Apply daily over previous coat. After seven (7) days, may remove with alcohol and continue cycle. Active azelaic acid (FINACEA) 15 % gel Apply 1 Application topically 2 (two) times a day. After skin is thoroughly washed and patted dry, gently but thoroughly massage a thin film of azelaic acid gel into the affected area twice daily, in the morning and evening. Active hydrOXYzine (ATARAX) 25 MG tablet Take 25 mg by mouth nightly at bedtime as needed for anxiety. Active ketoconazole 2 % cream Apply 1 Application topically daily. Active LORazepam (ATIVAN) 0.5 MG tablet Take 0.5 mg by mouth daily as needed for anxiety. Take 1/2 to 1 tab po daily prn anxiety Active losartan-hydroCH LOROthiazide (HYZAAR) 100-25 mg per tablet Take 1 tablet by mouth daily. Active metroNIDAZOLE (ROSADAN) 0.75 % gel Apply 1 Application topically 2 (two) times a day. Active ondansetron (ZOFRAN) 4 MG tablet Take 4 mg by mouth every 6 (six) hours as needed for nausea. Active albuterol 90 mcg/actuation inhaler Inhale 2 puffs into the lungs every 4 (four) hours as needed for wheezing or shortness of breath/dyspnea. Active estradioL (VIVELLE-DOT) 0.05 mg/[address] 1 patch onto the skin 2 (two) times a week. 8 patch 11 10/03/19 24 Active miscellaneous medical supply MiscIndications: Pelvic floor weakness,Stress incontinence Dispense 4 large pull ups per day for a total of 360 pull ups for a 90 day supply. 360 mL 2 05/20/20 25 Active miscellaneous medical supply MiscIndications: Mixed incontinence Dispense 8 bladder pads per day and 8 pull ups per day for a total of 30 days. 240 mL 3 05/20/20 25 Active miscellaneous medical supply MiscIndications: Mixed incontinence Dispense 8 bladder pads per day and 8 pull ups per day for a total of 30 days. 240 each 5 09/11/19 23 025 Discontin ued(Reord er) miscellaneous medical supply MiscIndications: Pelvic floor weakness,Stress incontinence Dispense 4 large pull ups per day for a total of 360 pull ups for a 90 day supply. 360 mL 2 12/20/19 23 025 Discontin ued(Reord er) Active Problems Problem Noted Date Diagnosed Date Menopause syndrome 09/20/2023 Overview (09/20/2023): Hot flashes and sweats, irritability, vaginal dryness. Last menstrual period 2 years ago Assessment & Plan (09/20/2023 12:36 PM EST): Is interested in HRT, risk benefits pros and cons side effects and various regimens were discussed, including options of bioidentical or using estradiol with the synthetic progestin that is an analog of progesterone. Advantage of topical estrogen in particular is that it reduces the DVT and pulmonary embolism risk, she preferred to go with a combined patch. I explained that that will only come with a progestin. Explained that she may experience some light bleeding in the first few months but if it persist beyond that should be evaluated. Small increased risk of heart disease initially noted, as well as breast cancer risk in particular after 5 years. 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 Hypertensive disorder 11/17/2020 IgA nephropathy 11/17/2020 Proteinuria 11/17/2020 Insomnia 03/12/2020 Encounters Date Type Department Care Team Description 05/27/2025 Telephone [facility] [address] [place] [address] [place] [address] Miguelito Jones LPN PA request 05/26/2025 Patient Outreach [facility] [address] [place] [phone] Beverly Ariza, RN Administration ([facility] Discharge ) 05/26/2025 Patient Outreach [facility] [address] [place] [phone] Rhianna Castanon, TORRIE Program Discharge ([facility] Discharge) 05/20/2025 Refill [facility] [address] [place] [address] [place] [address] Samaria Edmonds MA Medication Refill 04/13/2025 Patient Outreach [facility] [address] [place] [phone] Rhianna Castanon, TORRIE iCMP Care Plan Update ([facility] Plan of Care Update) from Last 3 Months Immunizations Immunization Administration Dates Next Due COVID-19 (Pre-06/24) Pfizer Vaccine, mRNA, PF ,10/16/2020 INFLUENZA, SPLIT VIRUS, TRIVALENT PF 07/20/2017 INFLUENZA, SPLIT VIRUS, TRIVALENT W/ PRESERVATIV E IM 07/16/2018 Influenza Quadrivalent Preservative Free IM 09/2018,07/16/2018 Influenza, whole 08/21/2006 Td (adult) 5 Lf Tetanus Toxoid, PF, Adsorbed 06/2018 Family History Medical History Relation Comments Hypertension Father Breast cancer Maternal Aunt Ovarian cancer Maternal Aunt Cancer Maternal Grandfather Hypertension Mother Cancer Paternal Grandfather Kidney disease Paternal Grandfather Colon cancer Paternal Grandmother Atrial fibrillation Sister 1 Stomach cancer Sister 2 Psoriasis Sister 3 Relation Status Comments Father Alive Maternal Aunt Maternal Grandfather Mother Alive Paternal Grandfather Paternal Grandmother Sister 1 Sister 2 Sister 3 Social History Tobacco Use Types Packs/Day Years Used Date Smoking Tobacco: Never Smokeless Tobacco: Never Alcohol Use Standard Drinks/Week Comments Yes 1 (1 standard drink = 0.6 oz pur e alcohol) Education Answer Date Recorded Are you interested in more education? Not on wilman e 12/29/2022 Are you concerned about learning? Not on file 12/29/2022 No 12/29/2022 No 12/29/2022 Digital Access Answer Date Recorded No 01/27/2023 No 01/27/2023 Reliable internet access at home? Not on file 01/27/2023 Device with a working camera? Not on file Comments No Sex and Gender Information Value Date Recorded Sex Assigned at Female 01/18/2021 4:13 PM EDT Legal Sex Female 5:10 PM EST Gender Identity Female 01/18/2021 4:13 PM EDT Sexual Orientation Choose not to disclose 2020 10:19 PM EDT Last Filed Vital Signs Vital Sign Reading Time Taken Comments Blood Pressure 126/82 09/20/2023 11:46 AM EST Pulse 83 12/10/2018 11:00 AM EDT Temperature 36.9 C (98.4 F) 12/10/2018 11:00 AM EDT Respiratory Rate 16 12/10/2018 11:00 AM EDT Oxygen Saturation 100% 12/10/2018 1:30 PM EDT Inhaled Oxygen Concentration - - Weight 87.5 kg (193 lb) 09/20/2023 11:46 AM EST Height 158.8 cm (5' 2.5 ) 09/20/2023 11:46 AM ES T Body Mass Index 34.74 09/20/2023 11:46 AM EST Plan of Treatment Health Maintenance Due Date Last Done Comments HIV ONE-TIME SCREENING (18-65 YEARS) 1983 MAMMOGRAM 2005 COLOGUARD 2010 COLONOSCOPY 2010 COLORECTAL CANCER SCREENING 2010 FIT TEST 2010 FOBT 2010 SIGMOIDOSCOPY 2010 VIRTUAL COLONOSCOPY 2010 PNEUMOCOCCAL VACCINES (50+ years) (1 of 1 - PCV) 2015 ZOSTER VACCINES (1 of 2) 2015 POTASSIUM LEVEL 12/11/2019 12/10/2018 DEPRESSION SCREENING 10/24/2021 10/24/2020 PAP SMEAR 04/27/2023 04/27/2020, 04/27/2020 BLOOD PRESSURE 03/20/2024 09/20/2023 CREATININE LEVEL 12/23/2024 12/24/2023, , 12/10/2018 INFLUENZA VACCINE (#1) 2025 9, 07/16/2018, 07/16/2018, Additional history exists COVID-19 VACCINE ( season) 2025 07/21/2021, 11/06/2020, 10/16/2020 SCREENING FOR DIABETES 10/09/2025 10/09/2022, 2018 LIPID PANEL 10/09/2027 10/09/2022 Adult Td,Tdap Booster 01/10/2028 01/09/2018 RSV VACCINE (1 - 1-dose 75+ series) 2040 HEPATITIS C SCREENING Completed 07/11/2020 SMOKING STATUS SCREENING (Once After 26 Yrs) Completed 09/20/2023 HEPATITIS A VACCINES Aged Out No long er eligible based on patient's age to complete this topic HIB VACCINES Aged Out No longer eligi ble based on patient's age to complete this topic MENINGOCOCCAL VACCINES (ACWY) Aged Out No longer eligible based on patient's age to complete this topic MENINGOCOCCAL VACCINES (B) Aged Out N o longer eligible based on patient's age to complete this topic Medical Devices Not on file Procedures Procedure Name Priority Date/Time Associated Diagnosis Comments PAP TEST Routine 04/27/2020 12:00 AM EDT BASIC METABOLIC PANEL STAT 12/10/2018 12:48 PM EDT from Last 3 Months or Most Recently Relevant to Health Maintenance Results * Pap Smear (04/27/2020 12:00 AM EDT) 04/27/2020 04/28/2020 9:0 0 AM EDT Narrative SEE NARRATIVE - 05/03/2020 11:51 [place] [address] Hearing And Speech Assistant: Lelo Ortiz MD SUPERVISOR TRAIN OPERATIONS Cytology Report FINAL DIAGNOSIS A. PAP SMEAR (SUREPATH) CE: SPECIMEN ADEQUACY: Satisfactory for evaluation; transformation zone present. INTERPRETATION: NEGATIVE FOR INTRAEPITHELIAL LESION OR MALIGNANCY. Electronically Signed Out By: DALILA Diaz(ASCP) The Pap test is a screening test primarily for squamous cancers and precursors and has associated false-negative and false-positive results. New technologies such as liquid-based preparations may decrease but will not eliminate all false-negative results. Regular sampling and follow-up of unexplained clinical signs and symptoms are recommended to minimize false negative results. PROCEDURES/ADDENDA HPV Testing (Requested) Ordered Date: 04/28/2020 A. PAP SMEAR (SUREPATH) CE: Human Papilloma Virus Test Negative for high-risk human papillomavirus types 16, 18, 45 and the Other high risk probe set (Includes 31, 33, 35, 39, 51, 52, 56, 58, 59, 66, 68) by Survature Onclarity HR-HPV analysis. Clinical correlation is advised. This HPV test was performed at [facility], [address] [place] [address]. This test has been FDA approved for SurePath cervical cytology specimens. The accuracy and precision of this test for all other specimen sources has been verified in the Cytopathology Laboratory of the [facility] and has not been cleared or approved by the U.S. Food and Drug Administration. Clinical correlation is advised. CLINICAL HISTORY Date of Last Menstrual Period: 04-06-2020 Menstrual History: Bleeding, Abnormal: MENORRHAGIA WITH REGULAR CYCLE Treatment History: Concurrent BXs Other Clinical Conditions: Screening Pap SPECIMEN SOURCE A: PAP SMEAR (SUREPATH) CE Patient Name: BELGICA LEO : 1965 (Age: 55) Sex: F Institution: [facility] Location: [facility] Date of Collection: 04/27/2020 Date of Reported: 05/02/2020 15:55 Results to: Jake Aguilar MD us Jkae Aguilar MD CYTOLOGY ORDERABLES Edited Resul t - Final SEE NARRATIVE * (ABNORMAL) Basic metabolic panel (12/10/2018 12:48 PM EDT) SODIUM 135 133 - 146 mmol/L [facility] CHLORIDE 101 96 - 108 mmol/L [facility] POTASSIUM 4.5 3.3 - 5.1 mmol/L [facility] CO2 25 21 - 35 mmol/L [facility] BUN 12 6 - 19 mg/dL [facility] CREATININE 0.70 0.5 - 1.5 mg/dL [facility] GLUCOSE 116(H) 70 - 99 mg/dL [facility] CALCIUM 9.3 8.4 - 10.3 mg/dL [facility] EGFR 99 >59 mL/min/1.7 3m2 [facility] Comment:If patient is black, multiply result by 1.159. Estimated glomerular filtration rate calculated using the CKD-EPI equation. ANION GAP 14 10 - 20 mmol/L [facility] Blood 12/10/2018 12:4 8 PM EDT 12/10/2018 12:52 PM EDT us Carlos Enrique Pollard MD LAB BLOOD ORDERABLES Fi nal Result [address] [address] from Last 3 Months or Most Recently Relevant to Health Maintenance Insurance [place] & B Care Teams Nuclear Power Plant Engineer Relationship Specialty Start Date End Date Ag Angel MD [address] [place] [phone] [email or web address] PCP - General Family Medicine 05/27/25 Additional Source Comments The information contained in this document represents components of the legal health record. It is not the complete legal health record.[facility]
--- OUTSIDE RECORDS SUMMARY | 2025-06-15 18:20 | XMS_ITS | Encounter Summary ---
Author Organization [facility] Address [address] [place] [address] Phone Care Team Providers Care Rn Imcu Name Role Phone Rhianna Castanon RN Unavailable Lisa Guillory Primary Care Provider [phone] Lisa Lou MD Unavailable [phone] Ag Angel MD Primary Care Provider [phone] Ag Angel MD Unavailable [phone] Elana Mendosa Unavailable [phone] Rhianna Castanon RN Unavailable Chana Madden HOSPITALITY SERVICES MANAGER Unavailable max Mari Adan Unavailable anitha Ag Angel MD Primary Care Provider [phone] Encounter Details Date Type Department Care Team (Late st Contact Info) Description 12/05/[address] [facility] [address] [place] [address] Ag Angel MD [address] [place], [place] [phone] [email or web address] Social History Tobacco Use Types Packs/Day Years [...] documented as of this encounter Care Teams Rn Imcu Relationship Specialty Start Date End Date Lisa Guillory PA [address] [place] [phone] PCP - General 09/16/20 12/06/20 Ag Angel MD [address] [place] [address] [email or web address] PCP - General Family Medicine 12/07/20 05/26/25 Ag Angel MD [address] [place] [phone] PCP - General Family Medicine 05/27/25 Rhianna Castanon, TORRIE [address] [place] [phone] PHCM Engine Room Helper 09/16/20 03/27/22 Lisa Lou MD [address] [place] [phone] Insurance Assigned Provider 10/08/20 02/05/21 Ag Angel MD [address] [place] [address] [email or web address] Insurance Assigned Provider 02/05/21 05/11/23 Elana Mendosa [address] [place] [address] [email or web address] Community Health Worker 03/02/21 06/19/21 Rhianna Castanon RN [address] [place] [address] [email or web address] PHCM Engine Room Helper 09/16/20 05/25/25 Chana Madden LCSW [address] [place] [phone] [email or web address] PHCM Supervisor Vat House 03/29/23 04/08/23 Mari Adan [address] [place] [phone] [email or web address] [facility] Community Customer Experience Intern 10/08/24 10/12/24 documented as of this encounter Additional Source Comments The information contained in this document represents components of the legal health record. It is not the complete legal health record.[facility]
--- OUTSIDE RECORDS SUMMARY | 2025-06-15 18:20 | XMS_ITS | Encounter Summary ---
Author Organization [facility] Address [address] [place] [address] Phone Care Team Providers Care Manager Ems Name Role Phone Rafaela Mendiola MD Primary Care Provid er Ag Angel MD Unavailable Rhianna Castanon RN Unavailable Lisa Guillory Primary Care Provider Lisa Lou MD Unavailable Ag Angel MD Primary Care Provider [phone] Ag Angel MD Unavailable Elana Mendosa Unavailable [phone] Rhianna Castanon RN Unavailable Chana MaddenW Unavailable max Mari Adan Unavailable anitha Ag Anegl MD Primary Care Provider [phone] Encounter Details Date Type Department Care Team (Late st Contact Info) Description 07/15/2019 Transcribe Orders Virtual Department [address] [place], [place] [phone] Winnie Thompson, PIETER [address] [place] [phone] [email or web address] Dyspnea, unspecified type (Primary Dx) Social History Tobacco Use Types Packs/Day Years Used Date Smoking Tobacco: Never Smokeless Tobacco: Never Alcohol Use Standard Drinks/Week Comments Yes 0 (1 standard drink = 0.6 oz pur e alcohol) social Comments Unknown Sex and Gender Information Value Date Recorded Sex Assigned at Female 01/18/2021 4:13 PM EDT Legal Sex Female 5:10 PM EST Gender Identity Female 01/18/2021 4:13 PM EDT Sexual Orientation Choose not to disclose 2020 10:19 PM EDT documented as of this encounter Plan of Treatment Not on file documented as of this encounter Visit Diagnoses Diagnosis Dyspnea, unspecified type- Primary documented in this encounter Care Teams Manager Ems Relationship Specialty Start Date End Date Rafaela Mendiola MD [address] [place] [address] PCP - General 06/18/17 09/15/20 Lisa Guillory PA [address] [place] [phone] PCP - General 09/16/20 12/06/20 Ag Angel MD [address] [place] [address] [email or web address] PCP - General Family Medicine 12/07/20 05/26/25 Ag Angel MD [address] [place] [address] [email or web address] PCP - General Family Medicine 05/27/25 Ag Angel MD [address] [place] [phone] Insurance Assigned Provider 10/02/19 10/08/20 Rhianna Castanon RN [address] [place] [phone] PHCM Qm Nurse 09/16/20 03/27/22 Lisa Lou MD [address] [place] [phone] Insurance Assigned Provider 10/08/20 02/05/21 Ag Angel MD [address] [place] [phone] Insurance Assigned Provider 02/05/21 05/11/23 Elana Mendosa [address] [place] [address] [email or web address] PHC Community Health Worker 03/02/21 06/19/21 Rhianna Castanon RN [address] [place] [phone] PHCM Qm Nurse 09/16/20 05/25/25 Chana Madden LCSW [address] [place] [phone] PHCM Biology Manager 03/29/23 04/08/23 Mari Adan [address] [place] [phone] [email or web address] [facility] Community Regulatory Consultant 10/08/24 10/12/24 documented as of this encounter Additional Source Comments The information contained in this document represents components of the legal health record. It is not the complete legal health record.[facility]
--- OUTSIDE RECORDS SUMMARY | 2025-06-15 18:20 | XMS_ITS ---
Author Name [facility] Organization Unknown Encounters Encounter Type Encounter Reason Primary Diagnosis Location Date Ambulatory [facility] ([facility] 07/25/2024
--- OUTSIDE RECORDS SUMMARY | 2025-06-15 18:20 | XMS_ITS | Encounter Summary ---
Author Organization [facility] Address [address] [place] [address] [place] [address] Phone Care Team Providers Care Peanut Vendor Name Role Phone Rhianna Castanon RN Unavailable Ag Angel MD Primary Care Provider [phone] Ag Angel MD Unavailable [phone] Elana Mendosa Unavailable [phone] Rhianna Castanon RN Unavailable Chana Madden [facility] Unavailable max Mari Adan Unavailable anitha Ag Angel MD Primary Care Provider [phone] Encounter Details Date Type Department Care Team (Late st Contact Info) Description 02/21/2021 Procedure Pass [facility] MR Imaging, [place] [address] [place] [address] Social History Tobacco Use Types Packs/Day Years [...] documented as of this encounter Care Teams Peanut Vendor Relationship Specialty Start Date End Date Ag Angel MD [address] [place] [phone] [email or web address] PCP - General Family Medicine 12/07/20 05/26/25 Ag Angel MD [address] [place] [phone] [email or web address] PCP - General Family Medicine 05/27/25 Rhianna Castanon RN [address] [place] [phone] PHCM Theatrical Dresser 09/16/20 03/27/22 Ag Angel MD [address] [place] [phone] [email or web address] Insurance Assigned Provider 02/05/21 05/11/23 Elana Mendosa [address] [place] [address] [email or web address] Community Health Worker 03/02/21 06/19/21 Rhianna Castanon RN [address] [place] [phone] PHCM Theatrical Dresser 09/16/20 05/25/25 Chana Madden LCSW [address] [place] [phone] PHCM Book Sewer 03/29/23 04/08/23 Mari Adan [address] [place] [phone] [email or web address] PHCM Community Housekeeper Caregiver 10/08/24 10/12/24 documented as of this encounter Additional Source Comments The information contained in this document represents components of the legal health record. It is not the complete legal health record.[facility]
== END 2025-06-15 15:39 | disposition home or self-care (01) ==
LOC: HO.MAMMO 15:38
PROVIDERS: PCP Family Medicine; Visit Provider Family Medicine
DX: Z12.31 Encounter for screening mammogram for malignant neoplasm of breast (principal)
CPT/HCPCS: 77063; 77067

== ENCOUNTER → 2025-06-15 15:45 | Outpatient (BNV) | payer MEDICARE, MEDICAID, SELFPAY | PROVIDERS: PCP Family Medicine; Visit Provider Radiology Body Imaging | DX: Z12.31 Encounter for screening mammogram for malignant neoplasm of breast (principal) | CPT/HCPCS: 77063; 77067 ==